=== PATIENT | male | born 1930 | race Caucasian/White ===

== ENCOUNTER 2016-10-12 12:20 | Emergency (ER) | payer MEDICARE, OTHER ==
--- NOTE | 2016-10-12 13:28 | ER Document Report ---
ED General - General Chief Complaint: Fall Stated Complaint: FALL HEAD PAIN Mode of Arrival: Ambulatory Information source: Patient Notes: 86 yr old male presents with complaitns of headache of 4 day duration. pt is not on any blod thinners, fell striking his head initially. daughter is caregivr , denies any other concerns TRAVEL OUTSIDE OF THE [place] IN LAST 30 DAYS: No - HPI Onset: Last week Onset/Duration: Persistent Quality of pain: Achy Severity: Mild Pain Level: 1 Associated symptoms: Other Exacerbated by: Denies Relieved by: Denies Similar symptoms previously: No Recently seen / treated by doctor: No - Related Data Allergies/Adverse Reactions: No Known Allergies Allergy (Verified 12/03/15 07:05) Past Medical History - General Information source: Emergency Med Personnel - Social History Smoking Status: Unknown if Ever Smoked Cigarette use (# per day): No Chew tobacco use (# tins/day): No Smoking Education Provided: No Frequency of alcohol use: None Drug Abuse: None Family History: Reviewed & Not Pertinent - Past Medical History Cardiac Medical History: Reports: Hx Congestive Heart Failure, Hx Coronary Artery Disease - Open Heart 08/2013, Hx Heart Attack, Hx Hypercholesterolemia Denies: Hx Hypertension Pulmonary Medical History: Denies: Hx Asthma, Hx Bronchitis, Hx COPD, Hx Pneumonia Neurological Medical History: Denies: Hx Cerebrovascular Accident, Hx Seizures Endocrine Medical History: Reports: Hx Diabetes Mellitus Type 2 GI Medical History: Reports: Hx Gastroesophageal Reflux Disease Musculoskeltal Medical History: Reports Hx Arthritis Past Surgical History: Reports: Hx Cardiac Surgery - cabg - Immunizations Hx Diphtheria, Pertussis, Tetanus Vaccination: Yes Hx Pneumococcal Vaccination: 07/26/14 Review of Systems - Review of Systems Notes: REVIEW OF SYSTEMS: CONSTITUTIONAL : Denies fever, chills, or sweats. Denies recent illness. EENT: Denies eye, ear, throat, or mouth pain or symptoms. Denies nasal or sinus congestion or discharge. Denies throat, tongue, or mouth swelling or difficulty swallowing. CARDIOVASCULAR: Denies chest pain. Denies palpitations or racing or irregular heart beat. Denies ankle edema. RESPIRATORY: Denies cough, cold, or chest congestion. Denies shortness of breath, difficulty breathing, or wheezing. GASTROINTESTINAL: Denies abdominal pain or distention. Denies nausea, vomiting , or diarrhea. Denies blood in vomitus, stools, or per rectum. Denies black, tarry stools. Denies constipation. GENITOURINARY: Denies difficulty urinating, painful urination, burning, frequency, blood in urine, or discharge. MUSCULOSKELETAL: Denies back or neck pain or stiffness. Denies joint pain or swelling. SKIN: Denies rash, lesions or sores. HEMATOLOGIC : Denies easy bruising or bleeding. LYMPHATIC: Denies swollen, enlarged glands. NEUROLOGICAL: admits ot headache and confusion PSYCHIATRIC: admits to anxiety ALL OTHER SYSTEMS REVIEWED AND NEGATIVE. Dictation was performed using [email or web address] voice recognition software PHYSICAL EXAMINATION: GENERAL: Well-appearing, well-nourished and in no acute distress. HEAD: Atraumatic, normocephalic. EYES: Pupils equal round and reactive to light, extraocular movements intact, sclera anicteric, conjunctiva are normal. ENT: Nares patent, oropharynx clear without exudates. Moist mucous membranes. NECK: Normal range of motion, supple without lymphadenopathy LUNGS: Breath sounds clear to auscultation bilaterally and equal. No wheezes rales or rhonchi. HEART: Regular rate and rhythm without murmurs ABDOMEN: Soft, nontender, nondistended abdomen. No guarding, no rebound. No masses appreciated. Musculoskeletal: Normal range of motion, no pitting or edema. No cyanosis. NEUROLOGICAL: Cranial nerves grossly intact. Normal speech, normal gait. Normal sensory, motor exams Pt is at baseline mentation PSYCH: Normal mood, normal affect. SKIN: Warm, Dry, normal turgor, no rashes or lesions noted. Physical Exam - Vital signs Vitals: Temp Pulse Resp BP Pulse Ox 97.0 F 78 20 111/74 98 10/12/16 12:41 10/12/16 12:41 10/12/16 12:41 10/12/16 12:41 10/12/16 12:41 Course - Re-evaluation Re-evalutation: 10/12/16 13:28 Patient emergently sent for CT head neck otherwise no acute abnormality 10/12/16 14:31 Family notes the patient is confused and weak, however alignment the room he knows exactly who everyone is has good strength in his extremities. I do believe there is a social issue and will have discharge planning involved but otherwise patient is oriented at his baseline After performing a Medical Screening Examination, I estimate there is LOW risk for ACUTE GLAUCOMA, TEMPORAL ARTERITIS, MENINGITIS, INCRANIAL HEMORRHAGE, or ISCHEMIC STROKE thus I consider the discharge disposition reasonable. The patient and I have discussed the diagnosis and risks, and we agree with discharging home with close follow-up with the understanding that symptoms and presentations can change. We also discussed returning to the Emergency Department immediately if new or worsening symptoms occur. We have discussed the symptoms which are most concerning (e.g., changing or worsening symptoms, new numbness or weakness, vomiting, fever) that necessitate immediate return. 10/12/16 14:36 - Vital Signs Vital signs: Temp Pulse Resp BP Pulse Ox 97.0 F 81 18 119/59 L 95 10/12/16 13:47 10/12/16 13:47 10/12/16 13:47 10/12/16 13:47 10/12/16 13:47 - Diagnostic Test Radiology reviewed: Image reviewed, Reports reviewed Discharge - Discharge Clinical Impression: Confusion Fall Qualifiers: Encounter type: initial encounter Qualified Code(s): W19.XXXA - Unspecified fall, initial encounter Dementia Qualifiers: Dementia type: unspecified type Dementia behavioral disturbance: without behavioral disturbance Qualified Code(s): F03.90 - Unspecified dementia without behavioral disturbance Condition: Stable Disposition: HOME, SELF-CARE Instructions: Dementia ([facility]) Additional Instructions: Altered Mental Status An altered mental status is a change in the normal functioning of the brain. This alteration of function can range from minor decreased brain function with some forgetfulness and confusion to complete loss of consciousness and coma. There are many possible causes of an altered mental status and include brain injuries such as trauma or strokes, problems with oxygen supply to the brain, fever and infections of the brain and/or elsewhere in the body, metabolic abnormalities such as low or high blood sugar, overdoses or excessive medication ingestion, and mental and psychiatric illnesses. Sometimes the altered mental status resolves and a definite cause is not determined. If a cause for your altered mental status was found, it has likely been corrected. Your evaluation has not shown any condition that requires that you be admitted to the hospital. It is believed that you are safe to leave and return to your home. If you have a return of your symptoms, you should return for re-evaluation.
[2016-10-12 15:53] VITALS: BP 115/48
== END 2016-10-12 15:53 | disposition home or self-care (01) ==
LOC: ER 12:20
DX: R51 Headache (principal); W19.XXXA Unspecified fall, initial encounter; F03.90 Unspecified dementia, unspecified severity, without behavioral disturbance, psychotic disturbance, mood disturbance, and anxiety; F41.9 Anxiety disorder, unspecified; I25.10 Atherosclerotic heart disease of native coronary artery without angina pectoris; I25.2 Old myocardial infarction; E11.9 Type 2 diabetes mellitus without complications; Z95.1 Presence of aortocoronary bypass graft
CPT/HCPCS: 70450; 72125; 99284

== ENCOUNTER 2017-02-08 20:14 | Emergency (ER) | payer MEDICARE, OTHER ==
--- NOTE | 2017-02-08 20:26 | ER Document Report ---
ED General - General Stated Complaint: FALL/HEAD INJURY Mode of Arrival: Ambulatory Information source: Patient Notes: 86-year-old male history of falls diabetes presents from care facility after fall striking his head, no loc, no other complaints, abrasion to scalp noted TRAVEL OUTSIDE OF THE [place] IN LAST 30 DAYS: No - HPI Onset: Just prior to arrival Onset/Duration: Sudden Quality of pain: No pain Severity: Mild Pain Level: Denies Associated symptoms: None Exacerbated by: Denies Relieved by: Denies Similar symptoms previously: Yes Recently seen / treated by doctor: Yes - Related Data Allergies/Adverse Reactions: No Known Allergies Allergy (Verified 12/03/15 07:05) Past Medical History - Social History Smoking Status: Never Smoker Cigarette use (# per day): No Chew tobacco use (# tins/day): No Smoking Education Provided: No Family History: Reviewed & Not Pertinent - Past Medical History Cardiac Medical History: Reports: Hx Congestive Heart Failure, Hx Coronary Artery Disease - Open Heart 08/2013, Hx Heart Attack, Hx Hypercholesterolemia Denies: Hx Hypertension Pulmonary Medical History: Denies: Hx Asthma, Hx Bronchitis, Hx COPD, Hx Pneumonia Neurological Medical History: Denies: Hx Cerebrovascular Accident, Hx Seizures Endocrine Medical History: Reports: Hx Diabetes Mellitus Type 2 GI Medical History: Reports: Hx Gastroesophageal Reflux Disease Musculoskeltal Medical History: Reports Hx Arthritis Past Surgical History: Reports: Hx Cardiac Surgery - cabg - Immunizations Hx Diphtheria, Pertussis, Tetanus Vaccination: Yes Hx Pneumococcal Vaccination: 07/26/14 Review of Systems - Review of Systems Notes: REVIEW OF SYSTEMS: CONSTITUTIONAL : Denies fever, chills, or sweats. Denies recent illness. EENT: Denies eye, ear, throat, or mouth pain or symptoms. Denies nasal or sinus congestion or discharge. Denies throat, tongue, or mouth swelling or difficulty swallowing. CARDIOVASCULAR: Denies chest pain. Denies palpitations or racing or irregular heart beat. Denies ankle edema. RESPIRATORY: Denies cough, cold, or chest congestion. Denies shortness of breath, difficulty breathing, or wheezing. GASTROINTESTINAL: Denies abdominal pain or distention. Denies nausea, vomiting , or diarrhea. Denies blood in vomitus, stools, or per rectum. Denies black, tarry stools. Denies constipation. GENITOURINARY: Denies difficulty urinating, painful urination, burning, frequency, blood in urine, or discharge. MUSCULOSKELETAL: Denies back or neck pain or stiffness. Denies joint pain or swelling. SKIN: Miss abrasion scalp HEMATOLOGIC : Denies easy bruising or bleeding. LYMPHATIC: Denies swollen, enlarged glands. NEUROLOGICAL: Denies confusion or altered mental status. Denies passing out or loss of consciousness. Denies dizziness or lightheadedness. Denies headache. Denies weakness or paralysis or loss of use of either side. Denies problems with gait or speech. Denies sensory loss, numbness, or tingling. Denies seizures. PSYCHIATRIC: Denies anxiety or stress. Denies depression, suicidal ideation, or homicidal ideation. ALL OTHER SYSTEMS REVIEWED AND NEGATIVE. Dictation was performed using [employer] voice recognition software PHYSICAL EXAMINATION: GENERAL: Well-appearing, well-nourished and in no acute distress. HEAD: Superficial abrasion of the occipital region EYES: Pupils equal round and reactive to light, extraocular movements intact, sclera anicteric, conjunctiva are normal. ENT: Nares patent, oropharynx clear without exudates. Moist mucous membranes. NECK: Normal range of motion, supple without lymphadenopathy LUNGS: Breath sounds clear to auscultation bilaterally and equal. No wheezes rales or rhonchi. HEART: Regular rate and rhythm without murmurs ABDOMEN: Soft, nontender, nondistended abdomen. No guarding, no rebound. No masses appreciated. Musculoskeletal: Normal range of motion, no pitting or edema. No cyanosis. NEUROLOGICAL: Cranial nerves grossly intact. Normal speech, normal gait. Normal sensory, motor exams PSYCH: Normal mood, normal affect. SKIN: Warm, Dry, normal turgor, no rashes or lesions noted. Physical Exam - Vital signs Vitals: Temp Pulse Resp BP Pulse Ox 98.3 F 64 16 108/50 L 96 02/08/17 20:20 02/08/17 20:20 02/08/17 20:20 02/08/17 20:20 02/08/17 20:20 Course - Re-evaluation Re-evalutation: 02/08/17 20:26 Area was examined no large laceration is noted, CT of the head neck are pending 02/08/17 21:42 CT of the head neck were negative. Patient will be discharged home after area is cleansed and bandaged Family is happy with this plan After performing a Medical Screening Examination, I estimate there is LOW risk for OPEN FRACTURE, COMPARTMENT SYNDROME, TENDON RUPTURE, ACUTE NEUROVASCULAR INJURY, or RETAINED FOREIGN BODY, thus I consider the discharge disposition reasonable. Also, there is no evidence or peritonitis, sepsis, or toxicity. I have reevaluated this patient multiple times and no significant life threatening changes are noted. The patient and I have discussed the diagnosis and risks, and we agree with discharging home with close follow-up with the understanding that symptoms and presentations can change. We also discussed returning to the Emergency Department immediately if new or worsening symptoms occur. We have discussed the symptoms which are most concerning (e.g., changing or worsening pain, fever, numbness, weakness, cool or painful digits) that necessitate immediate return. - Vital Signs Vital signs: Temp Pulse Resp BP Pulse Ox 98.3 F 64 16 108/50 L 96 02/08/17 20:20 02/08/17 20:20 02/08/17 20:20 02/08/17 20:20 02/08/17 20:20 - Diagnostic Test Radiology reviewed: Image reviewed, Reports reviewed Discharge - Discharge Clinical Impression: Head injury Qualifiers: Encounter type: initial encounter Qualified Code(s): S09.90XA - Unspecified injury of head, initial encounter Contusion Qualifiers: Encounter type: initial encounter Contusion area: head Contusion of head detail : scalp Qualified Code(s): S00.03XA - Contusion of scalp, initial encounter Condition: Stable Disposition: HOME, SELF-CARE Instructions: Head Injury Precautions ([facility]) Referrals: WILLA ALEXANDRA MD [Primary Care Provider] - Follow up in 3-5 days
[2017-02-08 22:26] VITALS: BP 121/56
== END 2017-02-08 22:27 | disposition home or self-care (01) ==
LOC: ER 20:14
DX: S00.03XA Contusion of scalp, initial encounter (principal); W01.198A Fall on same level from slipping, tripping and stumbling with subsequent striking against other object, initial encounter; Y92.129 Unspecified place in nursing home as the place of occurrence of the external cause; I25.10 Atherosclerotic heart disease of native coronary artery without angina pectoris; I25.2 Old myocardial infarction; E11.9 Type 2 diabetes mellitus without complications; Z95.1 Presence of aortocoronary bypass graft
CPT/HCPCS: 70450; 72125; 82962; 99285

== ENCOUNTER 2017-04-10 17:39 | Emergency (ER) | payer MEDICARE, OTHER ==
[2017-04-10] MEDS ORDERED: LIDOCAINE 1% INJ-PF (10 MG/ML) 30 ML SDV INJ ONE (19:29)
--- NOTE | 2017-04-10 20:25 | ER Document Report ---
ED Fall - General Chief Complaint: Fall Injury Stated Complaint: FALL/HEAD LACERATION Time Seen by Provider: 04/10/17 18:57 Notes: Patient Is a Resident of [facility]. Reportedly, he fell and hit his right head causing a small laceration and abrasion and some bleeding. He was not reported to be unconscious. Patient has dementia and is supposedly acting his normal and not acting abnormally for him. He is awake and confused and does not make any sense in his talk. Frequently yelling out for someone to do something for him. No other apparent injury except that to the right side of his head. Or what its worth, patient says he is not having any headache, neck pain, chest pain, shortness of breath, abdominal pain. Can move all 4 extremities without any limitations or pain. TRAVEL OUTSIDE OF THE [place] IN LAST 30 DAYS: No - Related data Allergies/Adverse Reactions: No Known Allergies Allergy (Verified 04/10/17 18:22) Past Medical History - Social History Smoking Status: Never Smoker Chew tobacco use (# tins/day): No Frequency of alcohol use: None Drug Abuse: None Family History: Reviewed & Not Pertinent - Past Medical History Cardiac Medical History: Reports: Hx Congestive Heart Failure, Hx Coronary Artery Disease - Open Heart 08/2013, Hx Heart Attack, Hx Hypercholesterolemia Endocrine Medical History: Reports: Hx Diabetes Mellitus Type 2 GI Medical History: Reports: Hx Gastroesophageal Reflux Disease Musculoskeltal Medical History: Reports Hx Arthritis Past Surgical History: Reports: Hx Cardiac Surgery - cabg - Immunizations Hx Diphtheria, Pertussis, Tetanus Vaccination: Yes Hx Pneumococcal Vaccination: 07/26/14 Review of Systems - Review of Systems -: Yes ROS unobtainable due to patient's medical condition - Patient is here from the [place] [facility]. There is no family with him Physical Exam - Vital signs Vitals: Temp Pulse BP Pulse Ox 97.3 F 76 130/58 H 84 L 04/10/17 17:53 04/10/17 17:53 04/10/17 17:53 04/10/17 17:53 Interpretation: Normal - Notes Notes: PHYSICAL EXAMINATION: GENERAL: Well-appearing, in no acute distress. Confused and at times irritable and loud. HEAD: Abrasion to the right mid scalp region above the moravian with a 1 cm laceration to the posterior aspect of that abrasion. This laceration should require a couple of sutures. EYES: Pupils equal round and reactive to light, extraocular movements intact. ENT: oropharynx clear without exudates. Moist mucous membranes. NECK: Normal range of motion, supple. LUNGS: Breath sounds clear and equal bilaterally. HEART: Regular rate and rhythm without murmurs. ABDOMEN: Soft, nontender. No guarding or rebound. BACK: No tenderness throughout entire back. EXTREMITIES: Normal range of motion without pain. NEUROLOGICAL: Go to assess because of the dementia. He can move all 4 extremities, however. PSYCH: Normal mood, normal affect. SKIN: Warm, dry, no rashes. Course - Vital Signs Vital signs: Temp Pulse Resp BP Pulse Ox 98.7 F 79 20 114/64 98 04/10/17 21:35 04/10/17 21:35 04/10/17 21:35 04/10/17 21:35 04/10/17 21:35 Procedures - Laceration/Wound Repair Right Head Wound length (cm): 1 Wound's Depth, Shape: Superficial, Linear Anesthetic type: 1% Lidocaine Volume Anesthetic (mLs): 3 Wound explored: Clean, No foreign body removed Irrigated w/ Saline (mLs): 50 Wound Repaired With: Sutures Suture Size/Type: 5:0 Number of Sutures: 2 Layer Closure?: No Post-procedure wound care: Sterile dressing applied Discharge - Discharge Clinical Impression: Laceration of face Qualifiers: Encounter type: initial encounter Qualified Code(s): S01.81XA - Laceration without foreign body of other part of head, initial encounter Condition: Stable Disposition: HOME, SELF-CARE Additional Instructions: LACERATION CARE: Your laceration has been sutured to keep the skin edges aligned during healing. The time of suture removal depends on the nature and location of your cut. Please follow the care instructions the doctor has outlined for you and return for further care, according to the schedule you've been given. Keep the wound and dressing clean. Unless you were told otherwise, you may shower daily, blotting the wound dry with a clean, unused towel. At other times, If the dressing gets wet or blood soaked, remove it and blot the wound dry, then reapply a new dressing. Unless you were instructed otherwise, dressings should be changed at least daily. If any signs of infection occur (swelling, redness, drainage, increasing tenderness, red streaks, tender lumps in the armpit or groin above the laceration, or fever), see the doctor immediately. SOAP CLEANSING: Gently wash the wound daily using a mild soap (like Ivory, Phisoderm, Neutrogena). Use warm water, rubbing gently until all debris, ooze, and crusting have been washed from the wound. Allow to dry briefly (about 10 minutes) after cleaning. Repeat this cleansing at least three times a day for the first two days and then once or twice a day. ANTIBIOTIC OINTMENT PROTECTION: Your wounds are such that dressing them is not practical or optional. After cleansing, you should apply a thin coating of antibiotic ointment ( Bacitracin, not Neosporin) to the wounds at least three times daily. This lessens infection risk, and may decrease the amount of scarring. Use a q-tip or dull butter knife, not your finger, to apply this ointment. Any debris or ooze which builds up in the ointment should be gently rubbed off with a sterile gauze pad. Harder crusting may need to be gently scrubbed off with a clean wash cloth with soap and warm water, perhaps applying a warm, wet wash cloth to the wound for ten minutes first. Development of redness, severe itching, or blistering may mean allergy to the ointment. See the doctor. FOLLOW-UP CARE: Your sutures should be removed in 7 days. To facilitate a timely removal of your sutures, you may return to the Emergency Department at [facility]. You do not need to call for an appointment, but the best time to come in for suture removal is early in the morning. If you have been referred to another physician for follow-up care, call that physicians office for an appointment as you were instructed. If you experience a significant change in your laceration, or if you are concerned there may be an infection (swelling, redness, drainage, increasing tenderness, red streaks, tender lumps in the armpit or groin above the laceration, or fever) , return to the Emergency Department immediately re-evaluation. Referrals: WILLA ALEXANDRA MD [Primary Care Provider] - Follow up as needed
[2017-04-10 21:36] VITALS: BP 114/64
== END 2017-04-10 21:50 | disposition home or self-care (01) ==
LOC: ER 17:39
PROC: 0HQ1XZZ Repair Face Skin, External Approach (ICD-10-PCS; principal; 2017-04-10)
DX: S01.81XA Laceration without foreign body of other part of head, initial encounter (principal); W19.XXXA Unspecified fall, initial encounter; Y92.128 Other place in nursing home as the place of occurrence of the external cause; F03.90 Unspecified dementia, unspecified severity, without behavioral disturbance, psychotic disturbance, mood disturbance, and anxiety; E11.9 Type 2 diabetes mellitus without complications; I25.10 Atherosclerotic heart disease of native coronary artery without angina pectoris; I25.2 Old myocardial infarction; Z95.1 Presence of aortocoronary bypass graft
CPT/HCPCS: 99284

== ENCOUNTER 2017-06-10 15:44 | Inpatient (IN) | payer MEDICARE, OTHER ==
--- NOTE | 2017-06-10 15:54 | ER Document Report ---
ED Respiratory Problem - General Mode of Arrival: Medic Information source: Emergency Med Personnel, [facility] Records, Outside Facility Records TRAVEL OUTSIDE OF THE [place] IN LAST 30 DAYS: No - HPI Similar symptoms previously: No Recently seen / treated by doctor: No <ZITA BURGER - Last Filed: 06/10/17 17:47> <TOM PITTMAN - Last Filed: 06/10/17 17:55> - General Chief Complaint: Breathing Difficulty Stated Complaint: DIFFICULTY BREATHING Time Seen by Provider: 06/10/17 15:52 - HPI Notes: Patient is an 87-year-old male presented emergency department for dyspnea and shortness of breath. Patient resides in a custodial for dementia and is non- ambulatory. Patient had a foot x-ray completed as well as a CT of his chest today. The chest CT read "Moderate to large left pleural effusion with collapse and consolidation of left lower lobe." Patient received a CT to possible rule out pneumonia. CT was ordered by Dr. Solis. Patient denies any shortness of breath however he is demented. Patient was placed on 2 L of oxygen in the department to keep his oxygen saturation in the 90s. Patient is not on O2 at the custodial. Patient also has a pressure ulcer on his right toe. The x- ray for such showed no concern for osteomyelitis. Patient has a history of CABG , type 2 diabetes mellitus, CAD, hypertension, hypercholesterolemia, hypothyroidism, depression, bipolar disorder, and iron deficiency anemia. Patient is a full code. (ZITA BURGER) - Related Data Allergies/Adverse Reactions: No Known Allergies Allergy (Verified 04/10/17 18:22) Past Medical History - General Information source: [facility] Records, Outside Facility Records - Social History Smoking Status: Former Smoker Cigarette use (# per day): No Chew tobacco use (# tins/day): No Smoking Education Provided: No Frequency of alcohol use: None Drug Abuse: None Family History: None Patient has suicidal ideation: No Patient has homicidal ideation: No - Past Medical History Cardiac Medical History: Reports: Hx Congestive Heart Failure, Hx Coronary Artery Disease, Hx Heart Attack, Hx Hypercholesterolemia, Hx Hypertension Endocrine Medical History: Reports: Hx Diabetes Mellitus Type 2, Hx Hypothyroidism GI Medical History: Reports: Hx Gastroesophageal Reflux Disease Musculoskeltal Medical History: Reports Hx Arthritis Psychiatric Medical History: Reports: Hx Dementia, Hx Depression Past Surgical History: Reports: Hx Coronary Artery Bypass Graft - 08/2013 - Immunizations Hx Diphtheria, Pertussis, Tetanus Vaccination: Yes Hx Pneumococcal Vaccination: 07/26/14 <ZITA BURGER - Last Filed: 06/10/17 17:47> Review of Systems - Review of Systems Constitutional: No symptoms reported EENT: No symptoms reported Cardiovascular: No symptoms reported Respiratory: See HPI, Short of breath, Other Gastrointestinal: No symptoms reported Genitourinary: No symptoms reported Male Genitourinary: No symptoms reported Musculoskeletal: See HPI Skin: See HPI Hematologic/Lymphatic: No symptoms reported Neurological/Psychological: No symptoms reported -: Yes All other systems reviewed and negative <ZITA BURGER - Last Filed: 06/10/17 17:47> Physical Exam <ZITA BURGER - Last Filed: 06/10/17 17:47> <TOM PITTMAN - Last Filed: 06/10/17 17:55> - Notes Notes: GENERAL: Alert, demented. Mild distress. HEAD: Normocephalic, atraumatic. EYES: Appear normal. Pupils equal, round, and reactive to light. ENT: Moist mucus membranes, tongue midline. Nasal cannula in place. NECK: Full range of motion. Supple. Trachea midline. LUNGS: Tachypneic. Decreased breath sounds in the left. Patient appears short of breath. 96% on 2 L of oxygen. Rattles and rhonchi with cough. HEART: Regular rate and rhythm. No murmurs, gallops, or rubs. ABDOMEN: Soft, non-tender. Non-distended. Normal bowel sounds. EXTREMITIES: Moves all 4 extremities spontaneously. Normal strength. No edema. The right foot dorsally is erythematous with swelling, there is extensive swelling and erythema to the right great toe. Bandages covering the right aspect of the right first metatarsal head consistent with a pressure ulcer. NEUROLOGICAL: Alert. Normal speech. PSYCH: Demented. SKIN: Warm, dry, normal turgor. (ZITA BURGER) Course - Laboratory Result Diagrams: 06/10/17 16:11 06/10/17 16:11 <ZITA BURGER - Last Filed: 06/10/17 17:47> - Laboratory Result Diagrams: 06/10/17 16:11 06/10/17 16:11 - Diagnostic Test Radiology reviewed: Image reviewed, Reports reviewed - Outpatient CT of the chest shows moderate to large left pleural effusion with collapse and consolidation of the left lower lobe. Heavy calcifications to the mitral annulus, aortic valve, and coronary arteries. An x-ray of the right foot shows the ulceration in the medial first metatarsal head region without evidence of osteomyelitis - EKG Interpretation by Me EKG shows normal: Sinus rhythm, [place], Intervals, QRS Complexes, ST-T Waves Rate: Normal - 77 Rhythm: NSR, PVC's [place]/QRS: LBBB When compared to previous EKG there are: No significant change - Consults Dr. Paulson Time consulted: 17:50 Consulted provider: will come to ER <TOM PITTMAN - Last Filed: 06/10/17 17:55> - Laboratory Laboratory results interpreted by me: 06/10/17 06/10/17 16:11 16:11 RBC 3.89 L Hgb 11.2 L Hct 34.5 L RDW 17.7 H Seg Neutrophils % 81.9 H Lymphocytes % 6.8 L Absolute Lymphocytes 0.4 L BUN 31 H Creatinine 1.52 H Est GFR ( Amer) 53 L Est GFR (Non-Af Amer) 43 L Direct Bilirubin 0.8 H ALT 14 L Creatine Kinase 38 L Albumin 3.4 L Discharge <ZITA BURGER - Last Filed: 06/10/17 17:47> - Discharge Admitting Provider: Hospitalist Unit Admitted: IMCU <TOM PITTMAN - Last Filed: 06/10/17 17:55> - Discharge Clinical Impression: Pleural effusion on left, Cellulitis of right foot, Hypoxemia, Collapse of left lung Dementia Qualifiers: Dementia type: unspecified type Dementia behavioral disturbance: without behavioral disturbance Qualified Code(s): F03.90 - Unspecified dementia without behavioral disturbance Condition: Stable Disposition: ADMITTED INPATIENT Scribe Attestation: 06/10/17 17:20 I personally performed the services described in the documentation, reviewed and edited the documentation which was dictated to the scribe in my presence, and it accurately records my words and actions. (TOM PITTMAN) Scribe Documentation - Scribe Written by [place]:: Jerrell Coats, 06/10/2017 16:15 acting as scribe for :: Jeffrey <ZITA BURGER - Last Filed: 06/10/17 17:47>
[2017-06-10 17:11] LABS: ABSOLUTE BASOPHILS # (AUTO) 0.1 10^3/uL (0.0-0.2); ABSOLUTE EOSINOPHILS # (AUTO) 0.1 10^3/uL (0.0-0.6); ABSOLUTE LYMPHOCYTES (AUTO) 0.4 10^3/uL (0.5-4.7); ABSOLUTE MONOCYTES (AUTO) 0.5 10^3/uL (0.1-1.4); ABSOLUTE NEUT (AUTO) 5.1 10^3/uL (1.7-8.2); BASOPHILS % (AUTO) 1.2 % (0-2); EOSINOPHILS % (AUTO) 2.2 % (0-6); HEMATOCRIT 34.5 % (37.9-51.0); HEMOGLOBIN 11.2 g/dL (13.5-17.0); HGB HCT DIFFERENCE -0.9; LYMPHOCYTES % (AUTO) 6.8 % (13-45); MEAN CORPUSCULAR HEMOGLOBIN 28.8 pg (27.0-33.4); MEAN CORPUSCULAR HGB CONC 32.5 g/dL (32.0-36.0); MEAN CORPUSCULAR VOLUME 89 fl (80-97); MONOCYTES % (AUTO) 7.9 % (3-13); RED BLOOD COUNT 3.89 10^6/uL (4.35-5.55); RED CELL DISTRIBUTION WIDTH 17.7 % (11.5-14.0); SEGMENTED NEUTROPHILS % (AUTO) 81.9 % (42-78); WHITE BLOOD COUNT 6.3 10^3/uL (4.0-10.5)
[2017-06-10 17:20] LABS: ALANINE AMINOTRANSFERASE 14 U/L (21-72); ALBUMIN 3.4 g/dL (3.5-5.0); ALKALINE PHOSPHATASE 70 U/L (38-126); ANION GAP 10 (5-19); ASPARTATE AMINO TRANSFERASE 17 U/L (17-59); BILIRUBIN,DIRECT 0.8 mg/dL (0.0-0.4); BLOOD UREA NITROGEN 31 mg/dL (7-20); CARBON DIOXIDE 29 mmol/L (22-30); CHLORIDE 102 mmol/L (98-107); CREATINE KINASE 38 U/L (55-170); CREATININE RESULT 1.52 mg/dL (0.52-1.25); GLUCOSE 107 mg/dL (75-110); POTASSIUM 4.1 mmol/L (3.6-5.0); SODIUM 141.3 mmol/L (137-145); TOTAL PROTEIN 6.8 g/dL (6.3-8.2)
[2017-06-10] MEDS ORDERED: DEXTROSE 50%-WATER 25 GM/50 ML DISP.SYRIN IV PRN ×4 (18:34→18:44)
[2017-06-10] MEDS ORDERED: ONDANSETRON HCL INJ/PF 4 MG/2 ML SDV IV PRN ×2 (18:34→18:38)
[2017-06-10] MEDS ORDERED: DEXTROSE 40% GEL 15 GM TUBE PO PRN ×4 (18:34→18:44)
[2017-06-10] MEDS ORDERED: INSULIN LISPRO 100 UNIT/ML 3 ML VIAL SUBCUT PRN ×2 (18:34→18:44)
[2017-06-10] MEDS ORDERED: IPRATROPIUM/ALBUTEROL 0.5-2.5 MG/3 ML AMPUL NEB PRN ×2 (18:34→18:38)
[2017-06-10] MEDS ORDERED: ONDANSETRON 4 MG TAB.RAPDIS PO PRN ×2 (18:34→18:38)
[2017-06-10] MEDS ORDERED: GLUCAGON,HUMAN RECOMB 1 MG INJ IM PRN ×2 (18:34→18:44)
[2017-06-10] MEDS ORDERED: ALBUTEROL SULFATE 0.083% NEB 2.5 MG/3 ML AMPUL NEB PRN (18:38)
[2017-06-10] MEDS ORDERED: ACETAMINOPHEN 325 MG TABLET PO PRN (18:38)
--- NOTE | 2017-06-10 19:01 | PDOC H&P ---
History of Present Illness Admission Date/PCP: 06/10/17 18:10 Patient complains of: Shortness of breath History of Present Illness: GURJIT HOOPER is a 87 year old male resident of [facility] who presents with shortness of breath. Patient has been treated with 2 courses of antibiotics for pneumonia. The patient had a chest x-ray that shows him to have a large pleural effusion. Patient has not had any fevers or chills or chest pain. The patient denies any orthopnea or PND. He does have a history of congestive heart failure. He does minimal ambulation. The patient is very demented. Past Medical History Cardiac Medical History: Reports: Congestive Heart Failure, Coronary Artery Disease, Myocardial Infarction, Hyperlipidema, Hypertension Pulmonary Medical History: Denies: Asthma, Bronchitis, Chronic Obstructive Pulmonary Disease (COPD), Pneumonia EENT Medical History: Reports: None Neurological Medical History: Denies: Seizures Endocrine Medical History: Reports: Diabetes Mellitus Type 2, Hypothyroidism Renal/ Medical History: Reports: Chronic Kidney Disease Malignancy Medical History: Reports: None GI Medical History: Reports: Gastroesophageal Reflux Disease Musculoskeltal Medical History: Reports: Arthritis Psychiatric Medical History: Reports: Dementia, Depression Hematology: Reports: Anemia Infectious Medical History: Reports: None Past Surgical History Past Surgical History: Reports: Coronary Artery Bypass Graft - 08/2013 Social History Information Source: Relative Lives with: Long Term Smoking Status: Former Smoker Frequency of Alcohol Use: Occasional Hx Recreational Drug Use: No Drugs: None Hx Prescription Drug Abuse: No - Advance Directive Resuscitation Status: Do Not Resuscitate Family History Family History: CAD Parental Family History Reviewed: Yes Children Family History Reviewed: No Sibling(s) Family History Reviewed.: No Medication/Allergy Allergies/Adverse Reactions: No Known Allergies Allergy (Verified 04/10/17 18:22) Review of Systems ROS unobtainable: Due to mental status Physical Exam Vital Signs: Temp Pulse Resp BP Pulse Ox 18 134/64 H 100 06/10/17 17:48 06/10/17 17:48 06/10/17 17:48 Intake & Output 06/09/17 06/10/17 06/11/17 06:59 06:59 06:59 Weight 72.575 kg General appearance: PRESENT: no acute distress, well-developed, well-nourished Head exam: PRESENT: atraumatic, normocephalic Eye exam: PRESENT: conjunctiva pink, EOMI, PERRLA. ABSENT: scleral icterus Ear exam: PRESENT: normal external ear exam Mouth exam: PRESENT: moist, tongue midline Neck exam: ABSENT: carotid bruit, JVD, lymphadenopathy, thyromegaly Respiratory exam: PRESENT: decreased breath sounds - Creased breath sounds in the left base. ABSENT: rales, rhonchi, wheezes Cardiovascular exam: PRESENT: RRR. ABSENT: diastolic murmur, rubs, systolic murmur Pulses: PRESENT: normal dorsalis pedis pul Vascular exam: PRESENT: normal capillary refill GI/Abdominal exam: PRESENT: normal bowel sounds, soft. ABSENT: distended, guarding, mass, organolmegaly, rebound, tenderness Rectal exam: PRESENT: deferred Extremities exam: ABSENT: calf tenderness, clubbing, pedal edema Neurological exam: PRESENT: awake, oriented to person. ABSENT: oriented to place, oriented to time, oriented to situation, motor sensory deficit Psychiatric exam: PRESENT: appropriate affect, normal mood. ABSENT: homicidal ideation, suicidal ideation Skin exam: PRESENT: dry, intact, warm. ABSENT: cyanosis, rash Assessment & Plan - Diagnosis (1) Pleural effusion Is this a current diagnosis for this admission?: Yes Plan: Has a large pleural effusion. Has been treated for pneumonia twice. The patient continues to have shortness of breath and has a large effusion. Will admit and ask radiology to do a thoracentesis. (2) Coronary artery disease Is this a current diagnosis for this admission?: Yes Plan: Patient denies any chest pain. (3) Diabetes mellitus Is this a current diagnosis for this admission?: Yes Plan: Cover with sliding scale insulin. (4) Hyperlipidemia Is this a current diagnosis for this admission?: Yes (5) Hypertension Is this a current diagnosis for this admission?: Yes (6) Peripheral vascular disease Is this a current diagnosis for this admission?: Yes (7) Chronic renal failure Is this a current diagnosis for this admission?: Yes Plan: Patient has stage III chronic renal failure. Patient appears to be euvolemic at this time. (8) Cellulitis of right foot Is this a current diagnosis for this admission?: Yes Plan: Patient has some mild cellulitis of the right foot with associated ulcer. Will cover with Zosyn. (9) Dementia Qualifiers: Dementia type: unspecified type Dementia behavioral disturbance: without behavioral disturbance Qualified Code(s): F03.90 - Unspecified dementia without behavioral disturbance Is this a current diagnosis for this admission?: Yes (10) Anemia Is this a current diagnosis for this admission?: Yes (11) CHF (congestive heart failure) Is this a current diagnosis for this admission?: Yes - Time Time Spent: 50 to 70 Minutes - Inpatient Certification Medical Necessity: Need Close Monitoring Due to Risk of Patient Decompensation - Plan Summary Plan Summary: The patient daughter requests that he be a DO NOT RESUSCITATE. She is the power of assistant city attorney.
[2017-06-10 20:43] LABS: APPEARANCE,URINE CLEAR; BILIRUBIN,URINE NEGATIVE (NEGATIVE); GLUCOSE, URINE NEGATIVE (NEGATIVE); KETONES,URINE NEGATIVE (NEGATIVE); LEUKOCYTE ESTERASE,URINE NEGATIVE (NEGATIVE); NITRITE,URINE NEGATIVE (NEGATIVE); PROTEIN,URINE NEGATIVE (NEGATIVE); URINE SPECIFIC GRAVITY 1.011; UROBILINOGEN,URINE NEGATIVE mg/dL (<2.0)
--- NOTE | 2017-06-10 22:01 | EKG REPORT ---
SEVERITY:- ABNORMAL ECG - SINUS RHYTHM VENTRICULAR PREMATURE COMPLEX LEFT BUNDLE BRANCH BLOCK : Confirmed by: Deanne Villegas 10-Jun-2017 22:01:10
[2017-06-10] MEDS: FAMOTIDINE 20 MG TABLET PO SCH (22:12)
[2017-06-11] MEDS ORDERED: PIPERACILLIN/TAZOBACTAM 3.375 GM VIAL IV ONE ×2 (00:54→05:16)
[2017-06-11] MEDS: PIPERACILLIN SODIUM/TAZOBACTAM 3.375 GM in NORMAL SALINE 100 ML IV SCH ×5 (01:09→23:59)
[2017-06-11] MEDS: ACETAMINOPHEN 325 MG TABLET PO PRN ×2 (03:22→10:13)
[2017-06-11 05:09] LABS: ABSOLUTE BASOPHILS # (AUTO) 0.1 10^3/uL (0.0-0.2); ABSOLUTE EOSINOPHILS # (AUTO) 0.1 10^3/uL (0.0-0.6); ABSOLUTE LYMPHOCYTES (AUTO) 0.4 10^3/uL (0.5-4.7); ABSOLUTE MONOCYTES (AUTO) 0.5 10^3/uL (0.1-1.4); BASOPHILS % (AUTO) 1.7 % (0-2); EOSINOPHILS % (AUTO) 1.7 % (0-6); HEMATOCRIT 33.1 % (37.9-51.0); HEMOGLOBIN 10.9 g/dL (13.5-17.0); HGB HCT DIFFERENCE -0.4; MEAN CORPUSCULAR HEMOGLOBIN 29.4 pg (27.0-33.4); MEAN CORPUSCULAR HGB CONC 32.9 g/dL (32.0-36.0); MEAN CORPUSCULAR VOLUME 89 fl (80-97); MONOCYTES % (AUTO) 10.7 % (3-13); RED CELL DISTRIBUTION WIDTH 17.3 % (11.5-14.0); SEGMENTED NEUTROPHILS % (AUTO) 78.9 % (42-78)
[2017-06-11 07:17] LABS: ANION GAP 9 (5-19); BLOOD UREA NITROGEN 29 mg/dL (7-20); CARBON DIOXIDE 29 mmol/L (22-30); CHLORIDE 103 mmol/L (98-107); CREATININE RESULT 1.58 mg/dL (0.52-1.25); GLUCOSE 92 mg/dL (75-110); SODIUM 141.3 mmol/L (137-145)
[2017-06-11 09:40] LABS: PROTHROMBIN TIME 16.6 SEC (11.4-15.4)
[2017-06-11] MEDS: IBUPROFEN 600 MG TABLET PO PRN (10:11)
[2017-06-11] MEDS: BUMETANIDE 1 MG TABLET PO SCH (10:12)
[2017-06-11] MEDS: LEVOTHYROXINE SODIUM 0.05 MG TABLET PO SCH (10:13)
--- NOTE | 2017-06-11 10:13 | PDOC PROGRESS REPORT ---
Subjective Progress Note for:: 06/11/17 Subjective:: Patient is pleasantly demented. Physical Exam Vital Signs: Temp Pulse Resp BP Pulse Ox 97.7 F 110 H 18 106/67 90 L 06/11/17 03:09 06/11/17 03:09 06/11/17 03:09 06/11/17 03:09 06/11/17 03:09 Intake & Output 06/10/17 06/11/17 06/12/17 06:59 06:59 06:59 Intake Total 522 Output Total 0 Balance 522 Weight 69.4 kg General appearance: PRESENT: no acute distress Eye exam: PRESENT: conjunctiva pink. ABSENT: scleral icterus Mouth exam: PRESENT: moist, tongue midline Neck exam: ABSENT: JVD Respiratory exam: PRESENT: decreased breath sounds - Decreased breath sounds at the left base. ABSENT: rales, rhonchi, wheezes Cardiovascular exam: PRESENT: RRR. ABSENT: diastolic murmur, rubs, systolic murmur GI/Abdominal exam: PRESENT: normal bowel sounds, soft. ABSENT: distended, guarding, mass, organolmegaly, rebound, tenderness Extremities exam: ABSENT: calf tenderness, clubbing, pedal edema Neurological exam: PRESENT: alert, awake, oriented to person, oriented to place. ABSENT: oriented to time, oriented to situation Psychiatric exam: PRESENT: appropriate affect Skin exam: PRESENT: dry, intact, warm. ABSENT: cyanosis, rash Results Laboratory Results: 06/11/17 04:24 06/11/17 04:24 06/10/17 06/11/17 06/11/17 20:03 04:24 04:24 WBC 5.0 RBC 3.70 L Hgb 10.9 L Hct 33.1 L MCV 89 MCH 29.4 MCHC 32.9 RDW 17.3 H Plt Count 184 Seg Neutrophils % 78.9 H Lymphocytes % 7.0 L Monocytes % 10.7 Eosinophils % 1.7 Basophils % 1.7 Absolute Neutrophils 4.0 Absolute Lymphocytes 0.4 L Absolute Monocytes 0.5 Absolute Eosinophils 0.1 Absolute Basophils 0.1 Sodium 141.3 Potassium 4.0 Chloride 103 Carbon Dioxide 29 Anion Gap 9 BUN 29 H Creatinine 1.58 H Est GFR ( Amer) 50 L Est GFR (Non-Af Amer) 42 L Glucose 92 Calcium 9.0 Urine Color YELLOW Urine Appearance CLEAR Urine pH 5.0 Ur Specific [place] 1.011 Urine Protein NEGATIVE Urine Glucose (UA) NEGATIVE Urine Ketones NEGATIVE Urine Blood NEGATIVE Urine Nitrite NEGATIVE Ur Leukocyte Esterase NEGATIVE Urine WBC (Auto) 6 Urine RBC (Auto) 0 Assessment & Plan - Diagnosis (1) Pleural effusion Is this a current diagnosis for this admission?: Yes Plan: Has a large pleural effusion. Has been treated for pneumonia twice. The patient continues to have shortness of breath and has a large effusion. Radiology to do thoracentesis today. (2) Coronary artery disease Is this a current diagnosis for this admission?: Yes Plan: Patient denies any chest pain. (3) Diabetes mellitus Is this a current diagnosis for this admission?: Yes Plan: Cover with sliding scale insulin. (4) Hyperlipidemia Is this a current diagnosis for this admission?: Yes (5) Hypertension Is this a current diagnosis for this admission?: Yes Plan: Stable (6) Peripheral vascular disease Is this a current diagnosis for this admission?: Yes (7) Chronic renal failure Is this a current diagnosis for this admission?: Yes Plan: Patient has stage III chronic renal failure. Patient appears to be euvolemic at this time. (8) Cellulitis of right foot Is this a current diagnosis for this admission?: Yes Plan: Patient has some mild cellulitis of the right foot with associated ulcer. Will cover with Zosyn. (9) Dementia Qualifiers: Dementia type: unspecified type Dementia behavioral disturbance: without behavioral disturbance Qualified Code(s): F03.90 - Unspecified dementia without behavioral disturbance Is this a current diagnosis for this admission?: Yes (10) Anemia Is this a current diagnosis for this admission?: Yes (11) CHF (congestive heart failure) Is this a current diagnosis for this admission?: Yes Plan: Patient appears to be euvolemic. - Time Time Spent with patient: 25-34 minutes - Inpatient Certification Medical Necessity: Need Close Monitoring Due to Risk of Patient Decompensation
[2017-06-11] MEDS: QUETIAPINE FUMARATE 25 MG TABLET PO SCH (10:14)
[2017-06-11] MEDS: TAMSULOSIN HCL 0.4 MG CAP.SR.24H PO SCH (10:14)
[2017-06-11] MEDS: FERROUS SULFATE 325 MG TABLET PO SCH (10:14)
[2017-06-11] MEDS: FLUOXETINE HCL 20 MG CAPSULE PO SCH (10:15)
[2017-06-11] MEDS: CARVEDILOL 3.125 MG TABLET PO SCH ×2 (10:15→23:49)
[2017-06-11] MEDS: FAMOTIDINE 20 MG TABLET PO SCH ×2 (10:15→23:49)
[2017-06-11] MEDS: LORAZEPAM INJ 2 MG/1 ML VIAL IV PRN (13:28)
--- NOTE | 2017-06-11 15:17 | RADIOLOGY REPORT (SQ) ---
EXAM DESCRIPTION: CHEST SINGLE VIEW COMPLETED DATE/TIME: 06/11/2017 3:04 pm REASON FOR STUDY: S/P THORACENTESIS COMPARISON: CT dated 06/10/2017. EXAM PARAMETERS: NUMBER OF VIEWS: One view. TECHNIQUE: Single frontal radiographic view of the chest acquired. RADIATION DOSE: NA LIMITATIONS: None. FINDINGS: LUNGS AND PLEURA: Basilar densities. Decrease in the left pleural effusion. No pneumotho rax. MEDIASTINUM AND HILAR STRUCTURES: No masses. Contour normal. HEART AND VASCULAR STRUCTURES: Heart normal in size. Normal vasculature. BONES: No acute findings. HARDWARE: Sternotomy wires and coronary bypass markers. OTHER: No other significant finding. IMPRESSION: DECREASE IN THE LEFT PLEURAL EFFUSION. NO PNEUMOTHORAX. TECHNICAL DOCUMENTATION: JOB ID: [id number]
--- NOTE | 2017-06-11 15:28 | RADIOLOGY REPORT (SQ) ---
EXAM DESCRIPTION: U/S THORACENTESIS WITH IMAGING COMPLETED DATE/TIME: 06/11/2017 3:14 pm REASON FOR STUDY: PLEURAL EFFUSION COMPARISON: CT of the chest dated 06/10/2017. LIMITATIONS: None. PROCEDURE: Procedure, risks, benefit, and alternative explained to patient who then gave written con sent. The posterior left chest wall was marked using ultrasound guidance. A time-out was called for correct marking verification. Chest prepped and draped using sterile technique. Local anesthesia ac hieved using 3 ml of 1% lidocaine injection. A 6fr Safe-T- Centesis set was introduced into the left pleural space. Fluid was aspirated. The catheter was removed and the entry site was covered with s terile bandage. No immediate complications noted. Images acquired during the procedure were stored on PACS. FINDINGS: ENTRY SITE: Posterior left FLUID VOLUME: 1500 cc FLUID ANALYSIS: Yellow straw-colored fluid OTHER: Fluid sent to the lab for testing. IMPRESSION: SUCCESSFUL THORACENTESIS USING ULTRASOUND GUIDANCE. COMMENT: Patient medication list reviewed: Yes- Quality ID# [id number]:Eligible professional attests to doc umenting in the medical record they obtained, updated, or reviewed the patient's current medications. Quality ID #[id number]: The patient was prepped and draped using maximum sterile barrier technique includin g cap, mask, sterile gown, sterile gloves, a large sterile sheet, hand hygiene, and 2% Chlorhexidine for cutaneous antisepsis. When ultrasound is used, sterile ultrasound techniques are followed requiri ng sterile gel and sterile probes. Quality ID #[id number]: Final reports for procedures using fluoroscopy that document radiation exposure [place], or exposure time and number of fluorographic images (if radiation exposure indices are not avail able) TECHNICAL DOCUMENTATION: JOB ID: [id number] [employer] All Rights Reserved
[2017-06-11 16:41] LABS: FLUID APPEARANCE CLEAR; FLUID RBC AVERAGE 7.5; FLUID RBC DILUENT USED NONE USED; FLUID RBC DILUTION FACTOR 1; FLUID RBC SIDE 1 6; FLUID RBC SIDE 2 9; FLUID TYPE PLEURAL; TOTAL RBC SQUARES COUNTED FLD 225
--- NOTE | 2017-06-11 17:35 | RADIOLOGY REPORT (SQ) ---
EXAM DESCRIPTION: CHEST SINGLE VIEW COMPLETED DATE/TIME: 06/11/2017 5:17 pm REASON FOR STUDY: S/P THORACENTESIS COMPARISON: 06/11/2017 earlier. FINDINGS: Portable AP upright single-view chest at approximately 1705 hours. Consolidation left base with associated pleural fluid, similar. Minimal patchy right basilar opacity looks slightly worse. Potentially largely related to progressive subsegmental atelectasis. No pneumothorax. IMPRESSION: As above. No pneumothorax. TECHNICAL DOCUMENTATION: JOB ID: [id number]
[2017-06-12] MEDS: PIPERACILLIN SODIUM/TAZOBACTAM 3.375 GM in NORMAL SALINE 100 ML IV SCH ×4 (05:33→23:41)
[2017-06-12 05:47] LABS: ABSOLUTE BASOPHILS # (AUTO) 0.1 10^3/uL (0.0-0.2); ABSOLUTE EOSINOPHILS # (AUTO) 0.1 10^3/uL (0.0-0.6); ABSOLUTE LYMPHOCYTES (AUTO) 0.4 10^3/uL (0.5-4.7); ABSOLUTE MONOCYTES (AUTO) 0.6 10^3/uL (0.1-1.4); BASOPHILS % (AUTO) 1.3 % (0-2); EOSINOPHILS % (AUTO) 2.6 % (0-6); HEMATOCRIT 30.1 % (37.9-51.0); HGB HCT DIFFERENCE -0.1; MEAN CORPUSCULAR HEMOGLOBIN 29.5 pg (27.0-33.4); MEAN CORPUSCULAR HGB CONC 33.3 g/dL (32.0-36.0); MEAN CORPUSCULAR VOLUME 89 fl (80-97); RED CELL DISTRIBUTION WIDTH 17.3 % (11.5-14.0); SEGMENTED NEUTROPHILS % (AUTO) 76.1 % (42-78); WHITE BLOOD COUNT 5.2 10^3/uL (4.0-10.5)
[2017-06-12 05:56] LABS: ANION GAP 8 (5-19); BLOOD UREA NITROGEN 30 mg/dL (7-20); CALCIUM 8.5 mg/dL (8.4-10.2); CARBON DIOXIDE 29 mmol/L (22-30); CHLORIDE 105 mmol/L (98-107); CREATININE RESULT 1.56 mg/dL (0.52-1.25); GLUCOSE 84 mg/dL (75-110); POTASSIUM 3.8 mmol/L (3.6-5.0); SODIUM 141.6 mmol/L (137-145)
[2017-06-12] MEDS: LEVOTHYROXINE SODIUM 0.05 MG TABLET PO SCH (10:26)
[2017-06-12] MEDS: FLUOXETINE HCL 20 MG CAPSULE PO SCH (10:27)
[2017-06-12] MEDS: CARVEDILOL 3.125 MG TABLET PO SCH ×2 (10:27→23:34)
[2017-06-12] MEDS: FAMOTIDINE 20 MG TABLET PO SCH ×2 (10:28→23:35)
[2017-06-12] MEDS: QUETIAPINE FUMARATE 25 MG TABLET PO SCH (10:28)
[2017-06-12] MEDS: TAMSULOSIN HCL 0.4 MG CAP.SR.24H PO SCH (10:29)
[2017-06-12] MEDS: FERROUS SULFATE 325 MG TABLET PO SCH (10:30)
[2017-06-12] MEDS: BUMETANIDE 1 MG TABLET PO SCH (10:31)
--- NOTE | 2017-06-12 11:52 | PDOC PROGRESS REPORT ---
Subjective Progress Note for:: 06/12/17 Subjective:: Patient is pleasantly demented. Physical Exam Vital Signs: Temp Pulse Resp BP Pulse Ox 97.1 F 68 14 119/56 L 98 06/12/17 07:25 06/12/17 08:46 06/12/17 08:46 06/12/17 07:25 06/12/17 08:46 Intake & Output 06/11/17 06/12/17 06/13/17 06:59 06:59 06:59 Intake Total 522 654 Output Total 0 0 Balance 522 654 Weight 69.4 kg 66.3 kg General appearance: PRESENT: no acute distress Eye exam: PRESENT: conjunctiva pink. ABSENT: scleral icterus Mouth exam: PRESENT: moist, tongue midline Neck exam: ABSENT: JVD Respiratory exam: PRESENT: clear to auscultation rupal. ABSENT: rales, rhonchi, wheezes Cardiovascular exam: PRESENT: RRR. ABSENT: diastolic murmur, rubs, systolic murmur GI/Abdominal exam: PRESENT: normal bowel sounds, soft. ABSENT: distended, guarding, mass, organolmegaly, rebound, tenderness Extremities exam: ABSENT: calf tenderness, clubbing, pedal edema Neurological exam: PRESENT: awake, oriented to person. ABSENT: oriented to place, oriented to time, oriented to situation Psychiatric exam: PRESENT: appropriate affect Skin exam: PRESENT: dry, intact, warm. ABSENT: cyanosis, rash Results Laboratory Results: 06/12/17 04:52 06/12/17 04:52 06/11/17 06/12/17 06/12/17 14:20 04:52 04:52 WBC 5.2 RBC 3.40 L Hgb 10.0 L Hct 30.1 L MCV 89 MCH 29.5 MCHC 33.3 RDW 17.3 H Plt Count 172 Seg Neutrophils % 76.1 Lymphocytes % 8.0 L Monocytes % 12.0 Eosinophils % 2.6 Basophils % 1.3 Absolute Neutrophils 4.0 Absolute Lymphocytes 0.4 L Absolute Monocytes 0.6 Absolute Eosinophils 0.1 Absolute Basophils 0.1 Sodium 141.6 Potassium 3.8 Chloride 105 Carbon Dioxide 29 Anion Gap 8 BUN 30 H Creatinine 1.56 H Est GFR ( Amer) 51 L Est GFR (Non-Af Amer) 42 L Glucose 84 Calcium 8.5 Fluid Type PLEURAL Fluid Source LUNG Fluid Color YELLOW Fluid Appearance CLEAR Fluid Viscosity LIQUID Fluid WBC 20 Fluid RBC 8 Impressions: Thoracentesis Ultrasound 06/11/17 00:00 IMPRESSION: SUCCESSFUL THORACENTESIS USING ULTRASOUND GUIDANCE. Chest X-Ray 06/11/17 17:00 IMPRESSION: As above. No pneumothorax. Assessment & Plan - Diagnosis (1) Pleural effusion Is this a current diagnosis for this admission?: Yes Plan: Patient had a thoracentesis and denies any complaints today. There was no evidence for pneumothorax. The patient has been treated for pneumonia several times and does continue to show an infiltrate. Clinically he does not have pneumonia. (2) Coronary artery disease Is this a current diagnosis for this admission?: Yes Plan: Patient denies any chest pain. (3) Diabetes mellitus Is this a current diagnosis for this admission?: Yes Plan: Cover with sliding scale insulin. (4) Hyperlipidemia Is this a current diagnosis for this admission?: Yes (5) Hypertension Is this a current diagnosis for this admission?: Yes Plan: Stable (6) Peripheral vascular disease Is this a current diagnosis for this admission?: Yes (7) Chronic renal failure Is this a current diagnosis for this admission?: Yes Plan: Patient has stage III chronic renal failure. Patient appears to be euvolemic at this time. (8) Cellulitis of right foot Is this a current diagnosis for this admission?: Yes Plan: Patient has some mild cellulitis of the right foot with associated ulcer. Will cover with Zosyn. (9) Dementia Qualifiers: Dementia type: unspecified type Dementia behavioral disturbance: without behavioral disturbance Qualified Code(s): F03.90 - Unspecified dementia without behavioral disturbance Is this a current diagnosis for this admission?: Yes (10) Anemia Is this a current diagnosis for this admission?: Yes (11) CHF (congestive heart failure) Is this a current diagnosis for this admission?: Yes Plan: Patient appears to be euvolemic. - Time Time Spent with patient: 25-34 minutes - Inpatient Certification Medical Necessity: Need Close Monitoring Due to Risk of Patient Decompensation, Need for IV Antibiotics
[2017-06-12] MEDS: IBUPROFEN 600 MG TABLET PO PRN (11:57)
[2017-06-12] MEDS: LORAZEPAM 0.5 MG TABLET PO PRN (17:15)
[2017-06-12] MEDS: ACETAMINOPHEN 325 MG TABLET PO PRN (17:18)
[2017-06-13] MEDS: PIPERACILLIN SODIUM/TAZOBACTAM 3.375 GM in NORMAL SALINE 100 ML IV SCH ×2 (05:55→11:00)
[2017-06-13 06:30] LABS: ABSOLUTE BASOPHILS # (AUTO) 0.1 10^3/uL (0.0-0.2); ABSOLUTE EOSINOPHILS # (AUTO) 0.2 10^3/uL (0.0-0.6); ABSOLUTE LYMPHOCYTES (AUTO) 0.3 10^3/uL (0.5-4.7); ABSOLUTE MONOCYTES (AUTO) 0.6 10^3/uL (0.1-1.4); ABSOLUTE NEUT (AUTO) 4.2 10^3/uL (1.7-8.2); BASOPHILS % (AUTO) 1.5 % (0-2); EOSINOPHILS % (AUTO) 3.1 % (0-6); HEMATOCRIT 32.2 % (37.9-51.0); HEMOGLOBIN 10.5 g/dL (13.5-17.0); HGB HCT DIFFERENCE -0.7; LYMPHOCYTES % (AUTO) 6.4 % (13-45); MEAN CORPUSCULAR HEMOGLOBIN 29.3 pg (27.0-33.4); MEAN CORPUSCULAR HGB CONC 32.6 g/dL (32.0-36.0); MEAN CORPUSCULAR VOLUME 90 fl (80-97); RED BLOOD COUNT 3.58 10^6/uL (4.35-5.55); RED CELL DISTRIBUTION WIDTH 17.4 % (11.5-14.0); WHITE BLOOD COUNT 5.4 10^3/uL (4.0-10.5)
[2017-06-13 06:45] LABS: ANION GAP 14 (5-19); BLOOD UREA NITROGEN 29 mg/dL (7-20); CALCIUM 8.9 mg/dL (8.4-10.2); CARBON DIOXIDE 26 mmol/L (22-30); CHLORIDE 103 mmol/L (98-107); GLUCOSE 85 mg/dL (75-110); SODIUM 142.5 mmol/L (137-145)
[2017-06-13] MEDS: BUMETANIDE 1 MG TABLET PO SCH (10:52)
[2017-06-13] MEDS: CARVEDILOL 3.125 MG TABLET PO SCH ×2 (10:54→22:38)
[2017-06-13] MEDS: QUETIAPINE FUMARATE 25 MG TABLET PO SCH (10:55)
[2017-06-13] MEDS: LEVOTHYROXINE SODIUM 0.05 MG TABLET PO SCH (10:56)
[2017-06-13] MEDS: TAMSULOSIN HCL 0.4 MG CAP.SR.24H PO SCH (10:57)
[2017-06-13] MEDS: FLUOXETINE HCL 20 MG CAPSULE PO SCH (10:57)
[2017-06-13] MEDS: FERROUS SULFATE 325 MG TABLET PO SCH (10:58)
[2017-06-13] MEDS: FAMOTIDINE 20 MG TABLET PO SCH ×2 (10:58→22:39)
--- NOTE | 2017-06-13 12:11 | PDOC PROGRESS REPORT ---
Subjective Progress Note for:: 06/13/17 Subjective:: Patient is pleasantly demented. Physical Exam Vital Signs: Temp Pulse Resp BP Pulse Ox 97.3 F 73 16 125/59 L 93 06/13/17 07:31 06/13/17 11:14 06/13/17 11:14 06/13/17 07:31 06/13/17 11:14 Intake & Output 06/12/17 06/13/17 06/14/17 06:59 06:59 06:59 Intake Total 654 1689 Output Total 0 100 Balance 654 1589 Weight 66.3 kg 75.1 kg General appearance: PRESENT: no acute distress Eye exam: PRESENT: conjunctiva pink. ABSENT: scleral icterus Mouth exam: PRESENT: moist, tongue midline Neck exam: ABSENT: JVD Respiratory exam: PRESENT: clear to auscultation rupal, rhonchi - Coarse rhonchi on the left.. ABSENT: rales, wheezes Cardiovascular exam: PRESENT: RRR. ABSENT: diastolic murmur, rubs, systolic murmur GI/Abdominal exam: PRESENT: normal bowel sounds, soft. ABSENT: distended, guarding, mass, organolmegaly, rebound, tenderness Extremities exam: ABSENT: calf tenderness, clubbing, pedal edema Neurological exam: PRESENT: alert, awake, oriented to person, oriented to place , CN II-XII grossly intact. ABSENT: oriented to time, oriented to situation, motor sensory deficit Psychiatric exam: PRESENT: appropriate affect Skin exam: PRESENT: dry, intact, warm. ABSENT: cyanosis, rash Results Laboratory Results: 06/13/17 05:23 06/13/17 05:23 06/11/17 06/11/17 06/13/17 14:20 14:20 05:23 WBC 5.4 RBC 3.58 L Hgb 10.5 L Hct 32.2 L MCV 90 MCH 29.3 MCHC 32.6 RDW 17.4 H Plt Count 192 Seg Neutrophils % 78.0 Lymphocytes % 6.4 L Monocytes % 11.0 Eosinophils % 3.1 Basophils % 1.5 Absolute Neutrophils 4.2 Absolute Lymphocytes 0.3 L Absolute Monocytes 0.6 Absolute Eosinophils 0.2 Absolute Basophils 0.1 Sodium Potassium Chloride Carbon Dioxide Anion Gap BUN Creatinine Est GFR ( Amer) Est GFR (Non-Af Amer) Glucose Calcium Fluid Glucose 107 Fluid Total Protein 2.8 09/04/17 05:23 WBC RBC Hgb Hct MCV MCH MCHC RDW Plt Count Seg Neutrophils % Lymphocytes % Monocytes % Eosinophils % Basophils % Absolute Neutrophils Absolute Lymphocytes Absolute Monocytes Absolute Eosinophils Absolute Basophils Sodium 142.5 Potassium 4.0 Chloride 103 Carbon Dioxide 26 Anion Gap 14 BUN 29 H Creatinine 1.60 H Est GFR ( Amer) 50 L Est GFR (Non-Af Amer) 41 L Glucose 85 Calcium 8.9 Fluid Glucose Fluid Total Protein Impressions: Thoracentesis Ultrasound 06/11/17 00:00 IMPRESSION: SUCCESSFUL THORACENTESIS USING ULTRASOUND GUIDANCE. Chest X-Ray 06/11/17 17:00 IMPRESSION: As above. No pneumothorax. Assessment & Plan - Diagnosis (1) Pleural effusion Is this a current diagnosis for this admission?: Yes Plan: Patient had a thoracentesis and denies any complaints today. There was no evidence for pneumothorax. The patient has been treated for pneumonia several times and does continue to show an infiltrate. Clinically he does not have pneumonia. (2) Coronary artery disease Is this a current diagnosis for this admission?: Yes Plan: Patient denies any chest pain. (3) Diabetes mellitus Is this a current diagnosis for this admission?: Yes Plan: Cover with sliding scale insulin. (4) Hyperlipidemia Is this a current diagnosis for this admission?: Yes (5) Hypertension Is this a current diagnosis for this admission?: Yes Plan: Stable (6) Peripheral vascular disease Is this a current diagnosis for this admission?: Yes (7) Chronic renal failure Is this a current diagnosis for this admission?: Yes Plan: Patient has stage III chronic renal failure. Patient appears to be euvolemic at this time. (8) Cellulitis of right foot Is this a current diagnosis for this admission?: Yes Plan: Patient has some mild cellulitis of the right foot with associated ulcer. he has been getting Zosyn. Will DC that and change to Augmentin. (9) Dementia Qualifiers: Dementia type: unspecified type Dementia behavioral disturbance: without behavioral disturbance Qualified Code(s): F03.90 - Unspecified dementia without behavioral disturbance Is this a current diagnosis for this admission?: Yes (10) Anemia Is this a current diagnosis for this admission?: Yes (11) CHF (congestive heart failure) Is this a current diagnosis for this admission?: Yes Plan: Patient appears to be euvolemic. - Time Time Spent with patient: 25-34 minutes - Inpatient Certification Medical Necessity: Need Close Monitoring Due to Risk of Patient Decompensation, Need for IV Antibiotics - Plan Summary Plan Summary: We will plan on transfer back to long term facility tomorrow.
--- NOTE | 2017-06-13 12:17 | PDOC TRANSFER SUMMARY ---
General - Admit/Disc Date/PCP Admission Date/Primary Care Provider: 06/10/17 18:38 Discharge Date: 06/14/17 - Discharge Diagnosis (1) Pleural effusion Is this a current diagnosis for this admission?: Yes Summary: Status post thoracentesis. The effusion most likely is related to his recent pneumonia. No evidence for empyema. (2) Coronary artery disease Is this a current diagnosis for this admission?: Yes (3) Diabetes mellitus Is this a current diagnosis for this admission?: Yes (4) Hyperlipidemia Is this a current diagnosis for this admission?: Yes (5) Hypertension Is this a current diagnosis for this admission?: Yes (6) Peripheral vascular disease Is this a current diagnosis for this admission?: Yes (7) Chronic renal failure Is this a current diagnosis for this admission?: Yes (8) Cellulitis of right foot Is this a current diagnosis for this admission?: Yes Summary: Initially treated with Zosyn. Has been switched to Augmentin. (9) Dementia Is this a current diagnosis for this admission?: Yes (10) Anemia Is this a current diagnosis for this admission?: Yes (11) CHF (congestive heart failure) Is this a current diagnosis for this admission?: Yes - Additional Information Resuscitation Status: Do Not Resuscitate Discharge Diet: Cardiac Discharge Activity: Activity As Tolerated Home Medications: Bumetanide [Bumex 1 mg Tablet] 1 mg PO DAILY 06/10/17 Carvedilol [Coreg 3.125 mg Tablet] 3.125 mg PO Q12 06/10/17 Ferrous Sulfate [Feosol 325 mg Tablet] 325 mg PO DAILY 06/10/17 Fluoxetine HCl [Prozac 20 mg Capsule] 20 mg PO DAILY 06/10/17 Ibuprofen [Motrin 600 mg Tablet] 600 mg PO BIDP PRN 06/10/17 Levothyroxine Sodium [Synthroid 0.05 mg Tablet] 50 mcg PO DAILY 06/10/17 Lorazepam [Ativan 0.5 mg Tablet] 0.5 mg PO Q12HP PRN 06/10/17 Quetiapine Fumarate [Seroquel] 25 mg PO DAILY 06/10/17 Quetiapine Fumarate [Seroquel] 50 mg PO QHS 06/10/17 Tamsulosin HCl [Flomax 0.4 mg Cap.sr] 0.4 mg PO DAILY 06/10/17 Amox Tr/Potassium Clavulanate [Augmentin 875-125 mg Tablet] 1 tab PO BID #20 tablet 06/12/17 Amox Tr/Potassium Clavulanate [Augmentin "500" Tablet] 1 tab PO Q8 #20 tablet 06/13/17 History of Present Illness Admission Date/PCP: 06/10/17 18:38 History of Present Illness: GURJIT HOOPER is a 87 year old male resident of [facility] who presents with shortness of breath. Patient has been treated with 2 courses of antibiotics for pneumonia. The patient had a chest x-ray that shows him to have a large pleural effusion. Patient has not had any fevers or chills or chest pain. The patient denies any orthopnea or PND. He does have a history of congestive heart failure. He does minimal ambulation. The patient is very demented. Hospital Course Hospital Course: 87-year-old gentleman who has had several episodes of pneumonia in the last month and a half who presented with shortness of breath. Patient was found to have a large left-sided pleural effusion. The patient underwent thoracentesis with removal of greater than 1 L of fluid. He noticed dramatic improvement in his breathing. The effusion appeared to be transudate. Patient does also have a history of congestive heart failure. He however has been euvolemic. The patient also was noted to have a cellulitis of his first metatarsal area. This was treated with Zosyn. It improved and he was switched over to Augmentin. The patient also is noted to have chronic renal failure. Patient has improved and is felt that he is stable for discharge back to [facility]. Please note this patient has a DO NOT RESUSCITATE per the daughter's request as she is the power of vendor management specialist. Physical Exam Vital Signs: Temp Pulse Resp BP Pulse Ox 97.3 F 73 16 125/59 L 93 06/13/17 07:31 06/13/17 11:14 06/13/17 11:14 06/13/17 07:31 06/13/17 11:14 Intake & Output 06/12/17 06/13/17 06/14/17 06:59 06:59 06:59 Intake Total 654 1689 Output Total 0 100 Balance 654 1589 Weight 66.3 kg 75.1 kg General appearance: PRESENT: no acute distress Eye exam: PRESENT: conjunctiva pink. ABSENT: scleral icterus Mouth exam: PRESENT: moist, tongue midline Neck exam: ABSENT: JVD Respiratory exam: PRESENT: rhonchi - Coarse rhonchi bilaterally.. ABSENT: rales , wheezes Cardiovascular exam: PRESENT: RRR. ABSENT: diastolic murmur, rubs, systolic murmur GI/Abdominal exam: PRESENT: normal bowel sounds, soft. ABSENT: distended, guarding, mass, organolmegaly, rebound, tenderness Extremities exam: ABSENT: calf tenderness, clubbing, pedal edema Neurological exam: PRESENT: awake, oriented to person, oriented to place. ABSENT: oriented to time, oriented to situation Psychiatric exam: PRESENT: appropriate affect Skin exam: PRESENT: dry, intact, warm. ABSENT: cyanosis, rash Results Laboratory Results: 06/13/17 05:23 06/13/17 05:23 06/11/17 06/11/17 06/13/17 14:20 14:20 05:23 WBC 5.4 RBC 3.58 L Hgb 10.5 L Hct 32.2 L MCV 90 MCH 29.3 MCHC 32.6 RDW 17.4 H Plt Count 192 Seg Neutrophils % 78.0 Lymphocytes % 6.4 L Monocytes % 11.0 Eosinophils % 3.1 Basophils % 1.5 Absolute Neutrophils 4.2 Absolute Lymphocytes 0.3 L Absolute Monocytes 0.6 Absolute Eosinophils 0.2 Absolute Basophils 0.1 Sodium Potassium Chloride Carbon Dioxide Anion Gap BUN Creatinine Est GFR ( Amer) Est GFR (Non-Af Amer) Glucose Calcium Fluid Glucose 107 Fluid Total Protein 2.8 06/13/17 05:23 WBC RBC Hgb Hct MCV MCH MCHC RDW Plt Count Seg Neutrophils % Lymphocytes % Monocytes % Eosinophils % Basophils % Absolute Neutrophils Absolute Lymphocytes Absolute Monocytes Absolute Eosinophils Absolute Basophils Sodium 142.5 Potassium 4.0 Chloride 103 Carbon Dioxide 26 Anion Gap 14 BUN 29 H Creatinine 1.60 H Est GFR ( Amer) 50 L Est GFR (Non-Af Amer) 41 L Glucose 85 Calcium 8.9 Fluid Glucose Fluid Total Protein Impressions: Thoracentesis Ultrasound 06/11/17 00:00 IMPRESSION: SUCCESSFUL THORACENTESIS USING ULTRASOUND GUIDANCE. Chest X-Ray 06/11/17 17:00 IMPRESSION: As above. No pneumothorax. Transfer Plan - Disposition Transfer Plan: Patient will be transferred back to [facility] on June 14, 2017 - Time Spent with Patient Time spent with patient: Greater than 30 Minutes Qualifiers PATEINT BEING DISCHARGED WITH ANY OF THE FOLLOWING DIAGNOSIS?: No Plan Discharge Plan: Patient to be transferred back to [facility] June 14, 2017 Time Spent: Greater than 30 Minutes
[2017-06-13] MEDS: AMOXICILLIN TR/POT CLAVULANATE 500-125 MG TAB PO SCH ×2 (13:08→22:37)
[2017-06-13] MEDS: LORAZEPAM INJ 2 MG/1 ML VIAL IV PRN (15:24)
[2017-06-14] MEDS: LORAZEPAM 0.5 MG TABLET PO PRN (01:38)
[2017-06-14] MEDS: AMOXICILLIN TR/POT CLAVULANATE 500-125 MG TAB PO SCH ×2 (06:03→13:05)
[2017-06-14 06:40] LABS: ABSOLUTE BASOPHILS # (AUTO) 0.1 10^3/uL (0.0-0.2); ABSOLUTE EOSINOPHILS # (AUTO) 0.1 10^3/uL (0.0-0.6); ABSOLUTE LYMPHOCYTES (AUTO) 0.3 10^3/uL (0.5-4.7); ABSOLUTE MONOCYTES (AUTO) 0.6 10^3/uL (0.1-1.4); ABSOLUTE NEUT (AUTO) 3.8 10^3/uL (1.7-8.2); BASOPHILS % (AUTO) 1.5 % (0-2); HEMATOCRIT 29.1 % (37.9-51.0); HEMOGLOBIN 9.7 g/dL (13.5-17.0); LYMPHOCYTES % (AUTO) 6.2 % (13-45); MEAN CORPUSCULAR HEMOGLOBIN 29.3 pg (27.0-33.4); MEAN CORPUSCULAR HGB CONC 33.3 g/dL (32.0-36.0); MEAN CORPUSCULAR VOLUME 88 fl (80-97); MONOCYTES % (AUTO) 11.8 % (3-13); RED CELL DISTRIBUTION WIDTH 17.5 % (11.5-14.0); SEGMENTED NEUTROPHILS % (AUTO) 77.5 % (42-78); WHITE BLOOD COUNT 4.9 10^3/uL (4.0-10.5)
[2017-06-14 06:55] LABS: ANION GAP 11 (5-19); BLOOD UREA NITROGEN 26 mg/dL (7-20); CALCIUM 8.7 mg/dL (8.4-10.2); CARBON DIOXIDE 24 mmol/L (22-30); CHLORIDE 106 mmol/L (98-107); CREATININE RESULT 1.52 mg/dL (0.52-1.25); GLUCOSE 82 mg/dL (75-110); POTASSIUM 3.7 mmol/L (3.6-5.0); SODIUM 141.2 mmol/L (137-145)
[2017-06-14] MEDS: LEVOTHYROXINE SODIUM 0.05 MG TABLET PO SCH (11:45)
[2017-06-14] MEDS: FAMOTIDINE 20 MG TABLET PO SCH (11:50)
[2017-06-14] MEDS: FERROUS SULFATE 325 MG TABLET PO SCH (11:51)
[2017-06-14] MEDS: TAMSULOSIN HCL 0.4 MG CAP.SR.24H PO SCH (11:51)
[2017-06-14] MEDS: QUETIAPINE FUMARATE 25 MG TABLET PO SCH (11:55)
[2017-06-14] MEDS: FLUOXETINE HCL 20 MG CAPSULE PO SCH (11:55)
[2017-06-14] MEDS: CARVEDILOL 3.125 MG TABLET PO SCH (11:56)
[2017-06-14 11:58] VITALS: BP 108/44
[2017-06-14] MEDS: BUMETANIDE 1 MG TABLET PO SCH (12:00)
--- NOTE | 2017-06-14 13:38 | PDOC PROGRESS REPORT ---
Subjective Progress Note for:: 06/14/17 Subjective:: Pt has multiple bruises/ecchymoses that apears chronic on UE B/L. Hematoma noted on the L forearm. No repoirted temp spikes nor diarrhea. Received ativan last night and placed on restraints. Sedated earlier but is now awake and alert. Able to eat lunch. Physical Exam Vital Signs: Temp Pulse Resp BP Pulse Ox 97.8 F 75 16 108/44 L 100 06/14/17 11:06 06/14/17 11:06 06/14/17 11:06 06/14/17 11:06 06/14/17 11:06 Intake & Output 06/13/17 06/14/17 06/15/17 06:59 06:59 06:59 Intake Total 1689 385 Output Total 100 100 Balance 1589 285 Weight 75.1 kg 74.4 kg General appearance: PRESENT: no acute distress, cooperative Head exam: PRESENT: normocephalic Eye exam: PRESENT: EOMI Mouth exam: PRESENT: moist, neck supple Neck exam: ABSENT: JVD Respiratory exam: PRESENT: clear to auscultation rupal. ABSENT: rhonchi, wheezes Cardiovascular exam: PRESENT: RRR. ABSENT: gallop GI/Abdominal exam: PRESENT: normal bowel sounds, soft. ABSENT: distended Extremities exam: PRESENT: other - R foot dressing clean, hematoma noted on L forearm. Multiple hyperpigmentation on both forearms w/ dry ecchymoses. Neurological exam: PRESENT: alert, awake Skin exam: PRESENT: dry, warm. ABSENT: cyanosis Results Laboratory Results: 06/14/17 05:55 06/14/17 05:55 06/14/17 06/14/17 05:55 05:55 WBC 4.9 RBC 3.30 L Hgb 9.7 L Hct 29.1 L MCV 88 MCH 29.3 MCHC 33.3 RDW 17.5 H Plt Count 193 Seg Neutrophils % 77.5 Lymphocytes % 6.2 L Monocytes % 11.8 Eosinophils % 3.0 Basophils % 1.5 Absolute Neutrophils 3.8 Absolute Lymphocytes 0.3 L Absolute Monocytes 0.6 Absolute Eosinophils 0.1 Absolute Basophils 0.1 Sodium 141.2 Potassium 3.7 Chloride 106 Carbon Dioxide 24 Anion Gap 11 BUN 26 H Creatinine 1.52 H Est GFR ( Amer) 53 L Est GFR (Non-Af Amer) 43 L Glucose 82 Calcium 8.7 06/11/17 14:20 Pleural Fluid - Not Specified Fungal Smear - Final 06/11/17 14:20 Pleural Fluid - Not Specified Fungal Smear - Final 06/11/17 14:20 Pleural Fluid - Not Specified Gram Stain - Final Impressions: Thoracentesis Ultrasound 06/11/17 00:00 IMPRESSION: SUCCESSFUL THORACENTESIS USING ULTRASOUND GUIDANCE. Chest X-Ray 06/11/17 17:00 IMPRESSION: As above. No pneumothorax. Assessment & Plan - Diagnosis (1) Cellulitis of right foot Is this a current diagnosis for this admission?: Yes (2) Pleural effusion Is this a current diagnosis for this admission?: Yes - Time Time Spent with patient: 15-24 minutes - Plan Summary Plan Summary: Ok to transfer back to SNF. D/C ibuprofen and apply pressure dressing to hematoma.
== END 2017-06-14 13:43 | DRG 292 ==
LOC: ER 15:44 → UNDOADMIN 18:10 → EH 18:10 → 3S 20:23
PROVIDERS: ADMIT Family Medicine; ATTEND Family Medicine
PROC: 0W9B3ZZ Drainage of Left Pleural Cavity, Percutaneous Approach (ICD-10-PCS; principal; 2017-06-11)
DX: I13.0 Hypertensive heart and chronic kidney disease with heart failure and stage 1 through stage 4 chronic kidney disease, or unspecified chronic kidney disease (principal); L03.115 Cellulitis of right lower limb; J90 Pleural effusion, not elsewhere classified; I50.9 Heart failure, unspecified; N18.3 Chronic kidney disease, stage 3 (moderate); E11.22 Type 2 diabetes mellitus with diabetic chronic kidney disease; I25.10 Atherosclerotic heart disease of native coronary artery without angina pectoris; E78.5 Hyperlipidemia, unspecified; E11.51 Type 2 diabetes mellitus with diabetic peripheral angiopathy without gangrene; E03.9 Hypothyroidism, unspecified; K21.9 Gastro-esophageal reflux disease without esophagitis; F03.90 Unspecified dementia, unspecified severity, without behavioral disturbance, psychotic disturbance, mood disturbance, and anxiety; D64.9 Anemia, unspecified; Z79.899 Other long term (current) drug therapy; Z78.1 Physical restraint status; I25.2 Old myocardial infarction; Z95.1 Presence of aortocoronary bypass graft; Z87.891 Personal history of nicotine dependence
CPT/HCPCS: 32555; 36415; 71010; 80048; 80053; 81001; 82550; 82945; 82962; 84157; 84484; 85025; 85610; 85730; 87040; 87070; 87075; 87101; 87205; 89050; 93005; 93010; 99285; J2060; J2543; J3490

== ENCOUNTER → 2017-06-10 | Outpatient (CLI) | payer MEDICARE, OTHER ==
[~2017-06-10] MED LIST: ACETAMINOPHEN 325 MG TABLET PO PRN; DEXTROSE 40% GEL 15 GM TUBE PO PRN; DEXTROSE 50%-WATER 25 GM/50 ML DISP.SYRIN IV PRN; GLUCAGON,HUMAN RECOMB 1 MG INJ IM PRN; INSULIN LISPRO 100 UNIT/ML 3 ML VIAL SUBCUT PRN; IPRATROPIUM/ALBUTEROL 0.5-2.5 MG/3 ML AMPUL NEB PRN; ONDANSETRON 4 MG TAB.RAPDIS PO PRN; ONDANSETRON HCL INJ/PF 4 MG/2 ML SDV IV PRN; PIPERACILLIN SODIUM/TAZOBACTAM 3.375 GM in NORMAL SALINE 100 ML IV SCH
--- NOTE | 2017-06-10 09:43 | RADIOLOGY REPORT (SQ) ---
EXAM DESCRIPTION: FOOT RIGHT COMPLETE COMPLETED DATE/TIME: 06/10/2017 8:40 am REASON FOR STUDY: NON PRESSURE OF R FOOT FAT LAYER EXPOSED J18.9 PNEUMONIA, UNSPECIFIED ORGANISM COMPARISON: None. NUMBER OF VIEWS: Three views. TECHNIQUE: AP, lateral and oblique radiographic images acquired of the right foot. LIMITATIONS: None. FINDINGS: MINERALIZATION: Normal. BONES: No acute fracture or dislocation. No worrisome bone lesions. JOINTS: Mild hallux valgus deformity right 1st metatarsophalangeal joint bony overgrowth at the 1st m etatarsal head. SOFT TISSUES: There is a soft tissue ulcer over the medial right forefoot at the level of 1st metatar sophalangeal joint. No underlying bony erosion of the 1st metatarsal head or base great toe proximal phalanx worrisome for osteomyelitis. OTHER: No radiopaque foreign body. No soft tissue gas IMPRESSION: Soft tissue ulcer over the medial right forefoot. No underlying bony erosions worrisome for osteomyelitis TECHNICAL DOCUMENTATION: JOB ID: [id number] [employer]- All Rights Reserved
--- NOTE | 2017-06-10 10:24 | RADIOLOGY REPORT (SQ) ---
EXAM DESCRIPTION: CT CHEST WITHOUT COMPLETED DATE/TIME: 06/10/2017 8:24 am REASON FOR STUDY: PNUEMONIA, UNSPECIFIED ORGANISM J18.9 PNEUMONIA, UNSPECIFIED ORGANISM COMPARISON: AP chest 12/03/2015 CT chest 09/11/2014 TECHNIQUE: CT scan performed of the chest without intravenous contrast. Images reviewed with lung, soft tissue and bone windows. Reconstructed coronal and sagittal MPR images reviewed. All images st ored on PACS. All CT scanners at this facility use dose modulation, iterative reconstruction, and/or weight based d osing when appropriate to reduce radiation dose to as low as reasonably achievable (ALARA). [facility]: Dose Right [facility]: CareDose [facility]: Dose Right [facility]: Teradose 4D [facility]: [employer] RADIATION DOSE: Up-to-date CT equipment and radiation dose reduction techniques were employed. CTDIv ol: 13.1 mGy. DLP: 607 mGy-cm. mGy. LIMITATIONS: No technical limitations. FINDINGS: LUNGS AND PLEURA: On the left side, a moderate to large left pleural effusion is present. There is left lower lobe collapse and consolidation. In the left upper lobe, overall volume loss is present with increased interstitial markings. No dense consolidation. Trace right pleural effusion. No focal right lung infiltrates or pulmonary nodules. 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 No pneumothorax. No pleural calcifications. HILAR AND MEDIASTINAL STRUCTURES: No identified masses or abnormal nodes. No obvious aneurysm. HEART AND VASCULAR STRUCTURES: Old sternotomy and CABG. Mild cardiomegaly with heavily calcified aminata ral annulus, aortic valve, and [place] coronary arteries. UPPER ABDOMEN: 3 cm cyst right upper pole kidney THYROID AND OTHER SOFT TISSUES: No masses. No adenopathy. BONES: No thoracic compression deformity. Old healed left anterior rib fractures HARDWARE: None in the chest. OTHER: No other significant findings. IMPRESSION: Moderate to large left pleural effusion with collapse and consolidation left lower lobe. TECHNICAL DOCUMENTATION: JOB ID: [id number] Quality ID # [id number]: Final reports with documentation of one or more dose reduction techniques (e.g., Au tomated exposure control, adjustment of the mA and/or kV according to patient size, use of iterative reconstruction technique) 2010 [employer]- All Rights Reserved
== END ==
LOC: RAD 08:05
PROVIDERS: ATTEND Preventive Medicine Undersea and Hyperbaric Medicine
DX: L89.512 Pressure ulcer of right ankle, stage 2 (principal); J18.9 Pneumonia, unspecified organism
CPT/HCPCS: 71250

== ENCOUNTER → 2017-07-12 | Day surgery (SDC) | payer MEDICARE, OTHER ==
[~2017-07-12] MED LIST changes: -ACETAMINOPHEN 325 MG TABLET PO PRN; +CEFTRIAXONE 1 GM/D5W RTU 1 GM/50 ML RTUPB IV ONE; +CEFTRIAXONE 1 GM/D5W RTU 1 GM/50 ML RTUPB IV SCH; -DEXTROSE 40% GEL 15 GM TUBE PO PRN; -DEXTROSE 50%-WATER 25 GM/50 ML DISP.SYRIN IV PRN; -GLUCAGON,HUMAN RECOMB 1 MG INJ IM PRN; -INSULIN LISPRO 100 UNIT/ML 3 ML VIAL SUBCUT PRN; -IPRATROPIUM/ALBUTEROL 0.5-2.5 MG/3 ML AMPUL NEB PRN; +NORMAL SALINE 10 ML SDV (AFTER EACH USE) IV PRN; +NORMAL SALINE 10 ML SDV (SCHEDULED) IV SCH; -ONDANSETRON 4 MG TAB.RAPDIS PO PRN; -ONDANSETRON HCL INJ/PF 4 MG/2 ML SDV IV PRN; -PIPERACILLIN SODIUM/TAZOBACTAM 3.375 GM in NORMAL SALINE 100 ML IV SCH
--- NOTE | 2017-07-12 16:31 | RADIOLOGY REPORT (SQ) ---
EXAM DESCRIPTION: PICC INSERTION; FLUORO/CV PLACEMENT; U/S GUIDE FOR VASCULAR ACCESS COMPLETED DATE/TIME: 07/12/2017 4:16 pm REASON FOR STUDY: FOR IV ANTIBIOTICS; PICC INSERTION COMPARISON: Chest films 06/11/2017 CT chest 06/10/2017 FLUOROSCOPY TIME: 14 seconds 1 digital C-arm and 1 ultrasound image saved to PACS. TECHNIQUE: Fluoroscopic and ultrasound guided PICC placement. LIMITATIONS: None. PROCEDURE: After written consent and assessment were obtained, the patient was brought into the fluo roscopy room and place supine on the table. Ultrasound was used on the patient's left arm for PICC a ccess. The left arm was prepped and draped in a sterile fashion along with the ultrasound probe. The entry site was anesthetized with 1% lidocaine. A 21 gauge 7 cm needle was advanced through the skin a nd into the basilic vein under live ultrasound guidance. An ultrasound image was saved to PACS confi rming access site. A .018 guide wire was then inserted through the needle and into the venous system . The needle was the removed and an 11 blade scalpel was used to make a 1cm skin incision. A 5 fr pe el-away sheath was advanced over the wire and into the venous system. A measurement was then made usi ng the existing wire and live fluoroscopic guidance. The wire was then removed and the trimmed. The P ICC was advanced through the peel-away sheath and into the venous system. The peel-away sheath was re moved and the catheter was adhered to the patients arm with a stat lock. The catheter was then aspira zaria and flushed and a sterile bandage was placed over the access site. A fluoroscopic spot image was saved to PACS confirming the catheter tip within the superior vena cava. IMPRESSION: SUCCESSFUL PLACEMENT OF A 5 FR DUAL LUMEN 45 CM PICC IN THE LEFT BASILIC VEIN. COMMENT: Patient medication list reviewed: Yes- Quality ID# 130:Eligible professional attests to doc umenting in the medical record they obtained, updated, or reviewed the patient's current medications. . Quality ID 145: Final reports for procedures using fluoroscopy that document radiation exposure [place], or exposure time and number of fluorographic images (if radiation exposure indices are not avail able) Quality ID #76: The patient was prepped and draped using maximum sterile barrier technique including cap, mask, sterile gown, sterile gloves, a large sterile sheet, hand hygiene, and 2% Chlorhexidine fo r cutaneous antisepsis. When ultrasound is used, sterile ultrasound techniques are followed requiring sterile gel and sterile probes. TECHNICAL DOCUMENTATION: JOB ID: [id number] [employer]- All Rights Reserved
[2017-07-12 17:25] VITALS: BP 111/54
== END ==
LOC: RAD 14:59
PROVIDERS: ATTEND Nurse Practitioner Family
PROC: 05HC33Z Insertion of Infusion Device into Left Basilic Vein, Percutaneous Approach (ICD-10-PCS; principal; 2017-07-12)
DX: Z45.2 Encounter for adjustment and management of vascular access device (principal)
CPT/HCPCS: 36569; 77001; 76937; J0696; J1642

== ENCOUNTER 2017-07-18 14:41 | Emergency (ER) | payer MEDICARE, OTHER ==
[2017-07-18] MEDS ORDERED: NORMAL SALINE 1000 ML 1,000 ML IV ONE (15:25)
--- NOTE | 2017-07-18 16:04 | RADIOLOGY REPORT (SQ) ---
EXAM DESCRIPTION: CHEST SINGLE VIEW COMPLETED DATE/TIME: 07/18/2017 3:53 pm REASON FOR STUDY: hypotension COMPARISON: 06/11/2017 NUMBER OF VIEWS: One view. TECHNIQUE: Single frontal radiographic view of the chest acquired. LIMITATIONS: None. FINDINGS: LUNGS AND PLEURA: Multifocal airspace disease with left greater than right pleural effusio ns. MEDIASTINUM AND HILAR STRUCTURES: No masses or contour abnormality. HEART AND VASCULATURE: Cardiac enlargement. Vascular congestion. BONES: No acute findings. HARDWARE: Satisfactory position left-sided PICC. Status post CABG. OTHER: No other significant finding. IMPRESSION: MULTIFOCAL AIRSPACE DISEASE WITH LEFT GREATER THAN RIGHT PLEURAL EFFUSIONS. FAVOR ASYMM ETRIC PULMONARY EDEMA HOWEVER MULTIFOCAL PNEUMONIA COULD HAVE THIS APPEARANCE. SATISFACTORY POSITION LEFT-SIDED PICC. TECHNICAL DOCUMENTATION: JOB ID: [id number] [employer]- All Rights Reserved
[2017-07-18 16:26] LABS: HEMATOCRIT 33.5 % (37.9-51.0); HEMOGLOBIN 10.4 g/dL (13.5-17.0); HGB HCT DIFFERENCE -2.3; MEAN CORPUSCULAR HEMOGLOBIN 27.7 pg (27.0-33.4); MEAN CORPUSCULAR VOLUME 89 fl (80-97); RED BLOOD COUNT 3.75 10^6/uL (4.35-5.55); RED CELL DISTRIBUTION WIDTH 18.2 % (11.5-14.0); WHITE BLOOD COUNT 8.2 10^3/uL (4.0-10.5)
[2017-07-18 16:39] LABS: ALANINE AMINOTRANSFERASE 27 U/L (21-72); ALBUMIN 2.8 g/dL (3.5-5.0); ALKALINE PHOSPHATASE 62 U/L (38-126); ANION GAP 11 (5-19); ASPARTATE AMINO TRANSFERASE 22 U/L (17-59); BILIRUBIN,DIRECT 0.7 mg/dL (0.0-0.4); BLOOD UREA NITROGEN 33 mg/dL (7-20); CALCIUM 8.6 mg/dL (8.4-10.2); CARBON DIOXIDE 23 mmol/L (22-30); CHLORIDE 107 mmol/L (98-107); CREATINE KINASE 32 U/L (55-170); CREATININE RESULT 1.29 mg/dL (0.52-1.25); GLUCOSE 91 mg/dL (75-110); LIPASE 31.4 U/L (23-300); POTASSIUM 4.3 mmol/L (3.6-5.0); SODIUM 140.8 mmol/L (137-145); TOTAL PROTEIN 6.4 g/dL (6.3-8.2)
[2017-07-18 16:41] LABS: BASOPHILS % (MANUAL) 0 % (0-2); EOSINOPHILS % (MANUAL) 2 % (0-6); LYMPHOCYTES % (MANUAL) 3 % (13-45); TOTAL CELLS COUNTED 100
[2017-07-18 16:42] LABS: ANISOCYTOSIS 1+; TOXIC GRANULATION SLIGHT; TOXIC VACUOLATION PRESENT
[2017-07-18 16:43] LABS: PLATELET CLUMPS PRESENT
[2017-07-18 16:46] LABS: HYPOCHROMASIA SLIGHT; OVALOCYTES 1+; POIKILOCYTOSIS 1+; POLYCHROMASIA SLIGHT; TARGET CELLS SLIGHT; TEAR DROP CELLS SLIGHT
--- NOTE | 2017-07-18 17:09 | ER Document Report ---
ED Blood Pressure Problem - General Chief Complaint: Blood Pressure Problem Stated Complaint: BLOOD PRESSURE PROBLEMS Time Seen by Provider: 07/18/17 15:24 Notes: The patient is an 87-year-old male, past medical history dementia, PAD, presents after his blood pressure was noticed to be 90/[address] to his vascular surgery appointment for infected foot. On arrival to the ER , the patient's blood pressure is 117/85 and he is asymptomatic at this time. He denies cough, fevers, nausea, vomiting, increased leg pain, chest pain, shortness of breath or abdominal pain. TRAVEL OUTSIDE OF THE [place] IN LAST 30 DAYS: No - Related Data Allergies/Adverse Reactions: No Known Allergies Allergy (Verified 04/10/17 18:22) Past Medical History - General Information source: Patient, Relative, Emergency Med Personnel - Social History Smoking Status: Unknown if Ever Smoked Chew tobacco use (# tins/day): No Frequency of alcohol use: None Drug Abuse: None Family History: CAD - Past Medical History Cardiac Medical History: Reports: Hx Congestive Heart Failure, Hx Coronary Artery Disease, Hx Heart Attack, Hx Hypercholesterolemia, Hx Hypertension Pulmonary Medical History: Denies: Hx Asthma, Hx Bronchitis, Hx COPD, Hx Pneumonia Neurological Medical History: Denies: Hx Cerebrovascular Accident, Hx Seizures Endocrine Medical History: Reports: Hx Diabetes Mellitus Type 2, Hx Hypothyroidism Renal/ Medical History: Denies: Hx Peritoneal Dialysis GI Medical History: Reports: Hx Gastroesophageal Reflux Disease Musculoskeltal Medical History: Reports Hx Arthritis Psychiatric Medical History: Reports: Hx Dementia, Hx Depression Past Surgical History: Reports: Hx Cardiac Surgery - cabg, Hx Coronary Artery Bypass Graft - 08/2013 - Immunizations Hx Diphtheria, Pertussis, Tetanus Vaccination: No Hx Pneumococcal Vaccination: 07/26/14 Review of Systems - Review of Systems Notes: REVIEW OF SYSTEMS: CONSTITUTIONAL: -fevers, -chills EENT: -eye pain, -difficulty swallowing, -nasal congestion CARDIOVASCULAR:-chest pain, -syncope. RESPIRATORY: -cough, -SOB GASTROINTESTINAL: -abdominal pain, - nausea, -vomiting, -diarrhea GENITOURINARY: -dysuria, -hematuria MUSCULOSKELETAL: -back pain, -neck pain SKIN: -rash or skin lesions. HEMATOLOGIC: -easy bruising or bleeding. LYMPHATIC: -swollen, enlarged glands. NEUROLOGICAL: -altered mental status or loss of consciousness, -headache, - neurologic symptoms PSYCHIATRIC: -anxiety, -depression. ALL OTHER SYSTEMS REVIEWED AND NEGATIVE. Physical Exam - Vital signs Vitals: Temp Pulse Resp BP Pulse Ox 97.7 F 72 20 108/50 L 100 07/18/17 15:30 07/18/17 15:30 07/18/17 15:30 07/18/17 15:30 07/18/17 15:30 - Notes Notes: PHYSICAL EXAMINATION: GENERAL: Well-appearing, well-nourished and in no acute distress. HEAD: Atraumatic, normocephalic. EYES: Pupils equal round and reactive to light, extraocular movements intact, sclera anicteric, conjunctiva are normal. ENT: nares patent, oropharynx clear without exudates. Moist mucous membranes. NECK: Normal range of motion, supple without lymphadenopathy LUNGS: Breath sounds clear to auscultation bilaterally and equal. No wheezes rales or rhonchi. HEART: Regular rate and rhythm without murmurs ABDOMEN: Soft, nontender, normoactive bowel sounds. No guarding, no rebound. No masses appreciated. EXTREMITIES: Chronic left foot wounds. Normal range of motion, no pitting or edema. No cyanosis. NEUROLOGICAL: Cranial nerves grossly intact. Normal speech, normal gait. Normal sensory and motor exams. PSYCH: Normal mood, normal affect. SKIN: Warm, Dry, normal turgor, no rashes or lesions noted. Course - Re-evaluation Re-evalutation: Patient appears well and he is in no respiratory distress. He is satting 94% on his usual home oxygen. Blood pressure has remained to 119/78 while in the emergency room and there are no signs of infection. His chest x-ray shows possible pulmonary edema versus atypical pneumonia. Patient has no fever, no coughing and is not hypoxic. Instructed him to follow-up with his primary care physician tomorrow for further evaluation and treatment. Offered admission for gentle diuresis, but family and patient would like to go home. They will reschedule their vascular surgery appointment in [place] this week. - Vital Signs Vital signs: Temp Pulse Resp BP Pulse Ox 97.7 F 72 20 110/58 L 94 07/18/17 15:30 07/18/17 15:30 07/18/17 15:30 07/18/17 17:09 07/18/17 17:09 - Laboratory Result Diagrams: 07/18/17 16:00 07/18/17 16:00 Laboratory results interpreted by me: 07/18/17 07/18/17 16:00 16:00 RBC 3.75 L Hgb 10.4 L Hct 33.5 L MCHC 31.0 L RDW 18.2 H Seg Neuts % (Manual) 91 H Lymphocytes % (Manual) 3 L Metamyelocytes % 1 H Abs Lymphs (Manual) 0.2 L BUN 33 H Creatinine 1.29 H Est GFR (Non-Af Amer) 53 L Direct Bilirubin 0.7 H Creatine Kinase 32 L Albumin 2.8 L Discharge - Discharge Clinical Impression: Low blood pressure reading Condition: Stable Disposition: HOME, SELF-CARE Additional Instructions: Have your blood pressure rechecked by her primary care physician this week. Reschedule your vascular surgery appointment.
[2017-07-18 18:01] VITALS: BP 110/58
== END 2017-07-18 18:01 | disposition home or self-care (01) ==
LOC: ER 14:41
DX: R03.1 Nonspecific low blood-pressure reading (principal); I25.10 Atherosclerotic heart disease of native coronary artery without angina pectoris; I25.2 Old myocardial infarction; I10 Essential (primary) hypertension; L08.9 Local infection of the skin and subcutaneous tissue, unspecified; E11.9 Type 2 diabetes mellitus without complications; Z95.1 Presence of aortocoronary bypass graft; Z99.81 Dependence on supplemental oxygen
CPT/HCPCS: 36415; 71010; 80053; 82550; 83690; 85025; 99285